=== PATIENT | female | born 1980 | race Caucasian/White ===

== ENCOUNTER 2024-07-30 22:30 | Inpatient (IN) | payer MEDICAID, OTHER ==
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
[2024-07-30 23:38] LABS: Basophils # (A) 0.05 10*3/uL (0.00-0.10); Basophils % (A) 0.4 %; Eosinophils % (A) 0.9 %; HCT 37.5 % (37.2-46.3); HGB 12.4 g/dL (12.0-15.0); Lymphocytes % (A) 14.7 %; MCH 29.2 pg (27.0-32.0); MCHC 33.1 g/dL (32.0-37.0); MCV 88.2 fL (80.0-97.0); Mean Platelet Volume 10.3 fL (9.5-12.2); Monocytes # (A) 0.27 10*3/uL (0.20-1.00); Monocytes % (A) 2.3 %; Neutrophils # (A) 9.36 10*3/uL (1.80-7.70); Neutrophils % (A) 81.3 %; Platelet Count 381 10*3/uL (140-440); RBC 4.25 10*6/uL (4.10-5.20); RDW 14.9 % (11.5-14.5); WBC 11.53 10*3/uL (4.50-10.00)
[2024-07-31 00:08] LABS: African American GFR (CKD) 73 (>60 ml/min/1.73 sqM); Anion Gap 12 mmol/L; Blood Urea Nitrogen 12 mg/dL (7-17); C Reactive Protein 3.4 mg/dL (<1.0); Calcium 9.9 mg/dL (8.4-10.2); Carbon Dioxide 17 mmol/L (22-30); Chloride 112 mmol/L (98-107); Creatine Kinase 30 U/L (30-135); Glucose 127 mg/dL (74-99); Non-African American GFR(CKD) 63 (>60 ml/min/1.73 sqM); Potassium 4.1 mmol/L (3.5-5.1); Sodium 141 mmol/L (137-145)
[2024-07-31] MEDS: MORPHINE SULFATE 4 MG/ML SYRINGE IV STA (00:12)
[2024-07-31] MEDS: methylPREDNISolone SOD SUCCI 125 MG/2 ML VIAL IV STA (00:25)
[2024-07-31] MEDS ORDERED: MORPHINE SULFATE 4 MG/ML SYRINGE IV PRN (00:43)
[2024-07-31] MEDS ORDERED: NALOXONE 0.4 MG/ML 1 ML VIAL IV PRN (00:43)
[2024-07-31] MEDS: ONDANSETRON 4 MG/2 ML VIAL IVP PRN (01:38)
--- NOTE | 2024-07-31 01:40 | CT ---
EXAM: CT Lumbar Spine Without Intravenous Contrast CLINICAL HISTORY: ITS.REASON CT Reason: L Leg pain/weakness. Urinary incont. TECHNIQUE: Axial computed tomography images of the lumbar spine without intravenous contrast. CTDI is 30.7 mGy and DLP is 1157 mGy-cm. This CT exam was performed using one or more of the following dose reduction techniques: automated exposure control, adjustment of the mA and/or kV according to patient size, and/or use of iterative reconstruction technique. COMPARISON: No relevant prior studies available. FINDINGS: Vertebrae: Mild facet arthropathy. Straightening of the lumbar spine. No acute fracture. Discs/spinal canal/neural foramina: Disc bulges L3-4 and L4-5. Some effacement of the ventral subarachnoid space L4-5. Narrowing of the lateral recesses, greater on the left at L4-5. Soft tissues: Unremarkable. IMPRESSION: 1. No fracture or malalignment. 2. Degenerative disc disease. Narrowing of the lateral recesses at L4-5 greater on the left.
[2024-07-31] MEDS: SODIUM CHLORIDE 0.9% 1,000 ML IV SCH (01:56)
[2024-07-31] MEDS: fentaNYL (PF) 50 MCG/ML 2 ML AMP IVP STA (02:01)
[2024-07-31] MEDS: KETOROLAC 15 MG/ML 1 ML VIAL IVP PRN (03:23)
[2024-07-31] MEDS: diazePAM 5 MG TAB PO PRN (04:10)
[2024-07-31] MEDS: ACETAMINOPHEN IV (For NPO) 1,000 MG in EMPTY BAG 1 BAG IVPB SCH (04:10)
[2024-07-31] MEDS ORDERED: ACETAMINOPHEN IV (For NPO) 1,000 MG in EMPTY BAG 1 BAG IVPB SCH (06:00)
[2024-07-31] MEDS: PREGABALIN 100 MG CAP PO SCH (06:00)
[2024-07-31] MEDS ORDERED: DEXTROSE 50% SYRINGE 50 ML IVP PRN ×2 (09:04)
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
[2024-07-31] MEDS: FAMOTIDINE 20 MG TAB PO SCH (09:13)
[2024-07-31] MEDS: LORazepam 1 MG/0.5 ML VIAL IV PRN (09:30)
[2024-07-31] MEDS: CHOLECALCIFEROL 125 MCG (5000 IU) TABLET PO SCH (10:51)
--- NOTE | 2024-07-31 10:51 | MR ---
EXAMINATION TYPE: MR lumbar spine wo/w con DATE OF EXAM: 07/31/2024 10:44 AM COMPARISON: None. CLINICAL INDICATION: Female, 44 years old with history of back pain, urinary incontinence, Lower back pain, urinary incontinence, left drop foot. TECHNIQUE: Multiplanar, MultiSpin echo imaging of the lumbar spine was performed. CONTRAST: The patient was injected with 10 mL intravenous Gadobutrol gadolinium contrast. FINDINGS: L1-L2: Normal disc appearance without desiccation. No herniation, protrusion or disc bulging. No ca nal stenosis is present. Foramina are patent bilaterally. L2-L3: Normal disc appearance without desiccation. No herniation, protrusion or disc bulging. No ca nal stenosis is present. Foramina are patent bilaterally. L3-L4: There is mild disc desiccation noted with posterior disc bulge and annular tear. Mild effaceme nt of the ventral thecal sac. No evidence for faye herniation or central stenosis. Lateral recesses patent bilaterally as is the neural foramen. L4-L5: Moderate disc desiccation with posterior disc bulge and effacement of the ventral thecal sac. Mild left lateral recess stenosis. Foramina are patent bilaterally. No central stenosis. L5-S1: Normal disc appearance without desiccation. No herniation, protrusion or disc bulging. No ca nal stenosis is present. Foramina are patent bilaterally. Lumbar segments are intact. No paraspinal masses are identified. Conus medullaris has a normal appe arance. No enhancing lesions identified. IMPRESSION: 1. Degenerative disc disease as discussed with posterior disc bulge. Mild lateral recess stenosis at L4-5. [facility], , 07/31/2024 10:49 AM
[2024-07-31] MEDS: METOPROLOL TARTRATE 25 MG TAB PO SCH (10:52)
[2024-07-31] MEDS: NICOTINE 21MG/24HR PATCH TRANSDERM SCH (10:52)
[2024-07-31] MEDS: ERGOCALCIFEROL 1,250 MCG (50,000 IU) CAPSULE PO SCH (10:52)
[2024-07-31] MEDS: PANTOPRAZOLE 40 MG TABLET PO SCH (10:52)
[2024-07-31] MEDS: TOPIRAMATE 25 MG TAB PO SCH (10:53)
[2024-07-31 11:11] LABS: Glucose,Whole Blood 286 mg/dL (70-110)
[2024-07-31] MEDS: INSULIN LISPRO (HumaLOG) 100 UNIT/ML 10 mL VL SQ SCH (11:56)
--- NOTE | 2024-07-31 12:23 | P.PN ---
Progress Note - Text Progress Note Date: 07/31/24 Patient is a pleasant 44-year-old female who is seen examined at the bedside for follow-up evaluation with her family present. Patient has undergone lumbar MRI imaging. Imaging has been reviewed by myself and Dr. Adam Oswald. Reviewing of imaging does not show any significant herniated nucleus pulposus, canal stenosis, or foraminal stenosis. There are not any significant findings that correlate well with the patient's symptoms. We do not see evidence of cauda equina on lumbar MRI imaging. She has had 2 episodes of loss of bladder. Will currently plan to consult Dr. Shipman in urology. She also has some numbness in her lower extremities, which has been chronic, but significant left lower extremity pain and weakness. She also has loss of bladder. We will consult with Dr. Black and neurology. At this time, we are not planning for any surgical intervention in regards to her lumbosacral spine as we do not feel there are indications in which surgical intervention would provide any significant improvement of her symptoms. We recommend further evaluation with other medical providers. The patient is seen and examined. I reviewed the imaging as well. I agree with the above that the patient does not have any Significant mechanical stenosis to account for her symptoms. She does have some degenerative changes at her lumbar spine with some diffuse disc bulging but no evidence of any cauda equina or significant central stenosis. I do not think her symptoms stem from her lumbar spine. I would not recommend any spinal intervention at this point. She has a number of different symptoms and I think that she could benefit with evaluation and continued management from medicine as well as the possibility of neurology and urology to address her issues. From a spine standpoint she can follow-up on a as needed basis.
[2024-07-31] MEDS ORDERED: diphenhydrAMINE 25 MG CAP PO PRN (12:51)
[2024-07-31] MEDS: HYDROcodone/APAP 5-325MG 1 EACH TAB PO PRN ×2 (12:59→15:15)
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
[2024-07-31 15:01] LABS: Appearance,Urine Clear (Clear); Bacteria,Urine Rare /hpf; Bilirubin,Urine Negative (Negative); Blood,Urine Small (Negative); Color,Urine Yellow; Glucose,Urine (UA) 1+ (Negative); Ketones,Urine Negative (Negative); Leukocyte Esterase,Urine Small (Negative); Mucus,Urine Rare /hpf; Nitrite,Urine Negative (Negative); PH, Urine 5.5 (5.0-8.0); Protein,Urine Negative (Negative); RBC,Urine 1 /hpf (0-5); Specific Gravity,Urine 1.035 (1.001-1.035); Squamous Epithelial Cell,Urine 3 /hpf (0-4); Urobilinogen,Urine <2.0 mg/dL (<2.0); WBC,Urine 2 /hpf (0-5)
[2024-07-31 16:15] LABS: Glucose,Whole Blood 261 mg/dL (70-110)
[2024-07-31 20:44] LABS: Glucose,Whole Blood 206 mg/dL (70-110)
[2024-07-31] MEDS: INSULIN GLARGINE (LANTUS) 100 UNIT/ML SYR SQ SCH (20:56)
[2024-08-01] MEDS: TEMAZEPAM 15 MG CAP PO PRN (00:15)
[2024-08-01 03:23] LABS: Vitamin B12 >3600.0 pg/mL (200.0-944.0)
[2024-08-01 06:14] LABS: Glucose,Whole Blood 182 mg/dL (70-110)
[2024-08-01] MEDS: ONDANSETRON 4 MG/2 ML VIAL IVP PRN (06:17)
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
[2024-08-01] MEDS: LOSARTAN 50 MG TAB PO SCH (09:14)
[2024-08-01] MEDS: FOLIC ACID 1 MG TAB PO SCH (09:14)
[2024-08-01 10:17] LABS: Basophils # (A) 0.04 X 10*3/uL (0.00-0.10); Basophils % (A) 0.2 %; Eosinophils # (A) 0.01 X 10*3/uL (0.04-0.35); Eosinophils % (A) 0.1 %; HCT 37.9 % (37.2-46.3); HGB 11.6 g/dL (12.0-15.0); Lymphocytes # (A) 2.99 X 10*3/uL (0.90-5.00); MCH 28.4 pg (27.0-32.0); MCHC 30.6 g/dL (32.0-37.0); MCV 92.9 FL (80.0-97.0); Mean Platelet Volume 11.2 FL (9.5-12.2); Monocytes # (A) 0.86 X 10*3/uL (0.20-1.00); Monocytes % (A) 5.2 %; NRBC Per 100 WBC 0 X 10*3/uL (0.00-0.01); Neutrophils # (A) 12.49 X 10*3/uL (1.80-7.70); Platelet Count 396 X 10*3/uL (140-440); RBC 4.08 X 10*6/uL (4.10-5.20); RDW 15.4 % (11.5-14.5); WBC 16.64 X 10*3/uL (4.50-10.00)
[2024-08-01 10:22] LABS: ALT 36 U/L (8-44); AST 17 U/L (13-35); Albumin 4.1 g/dL (3.8-4.9); Albumin/Globulin Ratio 2.16 Ratio (1.60-3.17); Alkaline Phosphatase 91 U/L (41-126); BUN/Creat Ratio 12.18 Ratio (12.00-20.00); Blood Urea Nitrogen 13.4 mg/dL (9.0-27.0); Calcium 9.4 mg/dL (8.7-10.3); Carbon Dioxide 17.6 mmol/L (21.6-31.8); Chloride 114 mmol/L (96-109); Globulin 1.9 g/dL (1.6-3.3); Glucose 185 mg/dL (70-110); Magnesium 2.5 mg/dL (1.5-2.4); Sodium 142 mmol/L (135-145); Total Bilirubin <0.2 mg/dL (0.3-1.2)
[2024-08-01 11:10] LABS: Glucose,Whole Blood 166 mg/dL (70-110)
--- NOTE | 2024-08-01 16:28 | P.PN ---
Subjective Progress Note Date: 08/01/24 This is a pleasant 44-year-old female from [place] who presented to the emergency department with loss of bladder and lower extremity weakness more so on the left with difficulty in ambulating. Patient follows with Dr. Groves in [place] as her primary care provider and also sees Dr. Cope neurology in the outpatient setting for radiculopathy and has been undergoing multiple tests including MRI and EMG studies with another EMG of the upper extremities do this upcoming Saturday. Patient is also reporting significant amount of pain and a consult to pain management has been requested per orthopedics. Patient did undergo lumbar CT in the ER that displayed no fracture or malalignment with degenerative disc disease and a narrowing of the lateral recesses at L4-5 bilaterally, greater on the left. Lumbar MRI was ordered and patient did have it this morning which reveals degenerative disc disease with a posterior disc bulge and mild lateral recess stenosis at L4-5 patient was evaluated by orthope dics today with no plans of surgical intervention and MRI is not a suggestive of any cauda equina and has been instructed to follow-up outpatient as needed. Orthopedics did consult pain management along with urology and neurology. Labs reviewed with a mildly elevated white count of 11.53, hemoglobin stable at 12.4, platelets 381, sodium 141 with a potassium of 4.1, creatinine is 1.09 with a BUN of 12, CK is 30 and CRP is 3.4. Patient was admitted under observation for orthopedic evaluation. 08/01/2024 Patient is evaluated in follow-up in the medical floor. She continues to report significant weakness in the left leg as well as a feeling of heaviness. She is having pain from her lower back all the way down to her ankle and foot on the left as well as her knee on the right. She is not reporting any saddle paresthesias at this time but states that it does come and go. Patient had mu ltiple imaging done and was also evaluated orthopedic surgery. Neurology is currently recommending lumbar puncture at this time. Blood cell count is elevated at 16.64. Vitamin B-12 was elevated folate level is low at 3.20 blood sugars better controlled. IgG and IgM ANAs are all unremarkable. REVIEW OF SYSTEMS: CONSTITUTIONAL: No fever, no malaise, no fatigue. HEENT: No recent visual problems or hearing problems. Denied any sore throat. CARDIOVASCULAR: No chest pain, orthopnea, PND, no palpitations, no syncope. PULMONARY: No shortness of breath, no cough, no hemoptysis. GASTROINTESTINAL: No diarrhea, no nausea, no vomiting, no abdominal pain. NEUROLOGICAL: Reports of headaches, reports of generalized weakness more so of the left lower extremity, reports of intermittent numbness of the left lower extremity. PHYSICAL EXAMINATION: GENERAL: The patient is alert and oriented x3, mildly anxious. Well developed, obese HEENT: Pupils are round and equally reacting to light. EOMI. No scleral icterus. No conjunctival pallor. Normocephalic, atraumatic. No pharyngeal erythema. No th yromegaly. CARDIOVASCULAR: S1 and S2 present. No murmurs, rubs, or gallops. PULMONARY: Chest is clear to auscultation, no wheezing or crackles. ABDOMEN: Soft, obese, nontender, nondistended, normoactive bowel sounds. No palpable organomegaly. MUSCULOSKELETAL: No joint swelling or deformity. EXTREMITIES: No cyanosis, clubbing, or pedal edema. Positive pulses noted bilaterally of lower extremities, strength 3/5 on the left lower extremity NEUROLOGICAL: Gross neurological examination did not reveal any focal deficits. Diffusely weak SKIN: No rashes. Assessment: Intractable back pain with lower extremity weakness, worse on the left, likely secondary to radiculopathy Leukocytosis, likely reactive Urinary incontinence History of diabetes mellitus, type II, uncontrolled with hyperglycemia Hypertension history History of pernicious anemia History of ovarian cancer previously History of anxiety Continued ongoing nicotine abuse Obesity with a BMI 36.4 GI prophylaxis DVT prophylaxis Full code Plan: Patient was admitted with intractable back pain and lower extremity weakness more so on the left with urinary incontinence x 2 underwent imaging including MRI as mentioned above with no acute findings noted other than degenerative disc disease on orthopedics recommending conservative management and may follow-up as needed Neurology and urology has been consulted with concerns of incontinence episodes x 2 and further neurological workup. Patient does follow with Dr. Cope in the outpatient setting and is undergoing further neurological workup including multiple EMGs, MRI and upper EMGs that are scheduled to be on Saturday. Patient does have significant diabetes although is insulin-dependent and will be managed in the outpatient setting by her primary care provider. Patient does not want to go to endocrine she was referred to. Hemoglobin A1c per patient is 5.2. Patient has been instructed to keep her appointments with her neurologist and will discuss with neurology regarding discharge planning today. Patient will need a walker on discharge in order to perform her ADLs secondary to significant radiculopathy with lower extremity weakness and paresthesias. Neurology will perform a lumbar puncture today with further recommendations pending. The impression and plan of care has been dictated by Raisa Cline Nurse Practitioner as directed. Dr. Kendrick MD I have performed a history and examination and MDM of this patient, discussed the same with the dictator, and agree with the dictator's assessment and plan as written ,documented as a scribe. Based on total visit time, I have performed more than 50% of the visit. Objective - Vital Signs Vital signs: Vital Signs Temp 97.6 F 08/01/24 14:00 Pulse 98 08/01/24 14:00 Resp 18 08/01/24 14:00 BP 97/60 08/01/24 14:00 Pulse Ox 99 08/01/24 14:00 FiO2 Intake & Output 07/31/24 08/01/24 08/01/24 18:59 06:59 18:59 Other: Voiding Method Bedside Commode Bedside Commode Bedside Commode Diaper Diaper # Voids 3 1 - Labs CBC & Chem 7: 08/01/24 05:55 08/01/24 05:55 Labs: Abnormal Lab Results - Last 24 Hours (Table) 07/31/24 07/31/24 07/31/24 Range/Units 20:42 20:50 20:50 WBC (4.50-10.00) X 10*3/uL RBC (4.10-5.20) X 10*6/uL Hgb (12.0-15.0) g/dL MCHC (32.0-37.0) g/dL RDW (11.5-14.5) % Immature Gran # (0.00-0.04) X 10*3/uL Neutrophils # (1.80-7.70) X 10*3/uL Eosinophils # (0.04-0.35) X 10*3/uL Chloride (96-109) mmol/L Carbon Dioxide (21.6-31.8) mmol/L Glucose (70-110) mg/dL POC Glucose (mg/dL) 206 H (70-110) mg/dL Magnesium (1.5-2.4) mg/dL Total Bilirubin (0.3-1.2) mg/dL Total Protein (6.2-8.2) g/dL Vitamin B12 >3600.0 H (200.0-944.0) pg/mL Folate 3.20 L (4.40-31.00) ng/mL 08/01/24 08/01/24 08/01/24 Range/Units 05:55 05:55 06:13 WBC 16.64 H (4.50-10.00) X 10*3/uL RBC 4.08 L (4.10-5.20) X 10*6/uL Hgb 11.6 L (12.0-15.0) g/dL MCHC 30.6 L (32.0-37.0) g/dL RDW 15.4 H (11.5-14.5) % Immature Gran # 0.25 H (0.00-0.04) X 10*3/uL Neutrophils # 12.49 H (1.80-7.70) X 10*3/uL Eosinophils # 0.01 L (0.04-0.35) X 10*3/uL Chloride 114 H (96-109) mmol/L Carbon Dioxide 17.6 L (21.6-31.8) mmol/L Glucose 185 H (70-110) mg/dL POC Glucose (mg/dL) 182 H (70-110) mg/dL Magnesium 2.5 H (1.5-2.4) mg/dL Total Bilirubin <0.2 L (0.3-1.2) mg/dL Total Protein 6.0 L (6.2-8.2) g/dL Vitamin B12 (200.0-944.0) pg/mL Folate (4.40-31.00) ng/mL 08/01/24 Range/Units 11:05 WBC (4.50-10.00) X 10*3/uL RBC (4.10-5.20) X 10*6/uL Hgb (12.0-15.0) g/dL MCHC (32.0-37.0) g/dL RDW (11.5-14.5) % Immature Gran # (0.00-0.04) X 10*3/uL Neutrophils # (1.80-7.70) X 10*3/uL Eosinophils # (0.04-0.35) X 10*3/uL Chloride (96-109) mmol/L Carbon Dioxide (21.6-31.8) mmol/L Glucose (70-110) mg/dL POC Glucose (mg/dL) 166 H (70-110) mg/dL Magnesium (1.5-2.4) mg/dL Total Bilirubin (0.3-1.2) mg/dL Total Protein (6.2-8.2) g/dL Vitamin B12 (200.0-944.0) pg/mL Folate (4.40-31.00) ng/mL Assessment and Plan Time with Patient: Less than 30
[2024-08-01 16:42] LABS: Glucose,Whole Blood 190 mg/dL (70-110)
[2024-08-01] MEDS: methylPREDNISolone SOD SUCCIN 250 MG in SODIUM CHLORIDE 0.9% 100 ML IVPB SCH (21:10)
[2024-08-02 05:02] LABS: Basophils # (A) 0.05 10*3/uL (0.00-0.10); Basophils % (A) 0.5 %; Eosinophils # (A) 0.02 10*3/uL (0.04-0.35); Eosinophils % (A) 0.2 %; HCT 38.4 % (37.2-46.3); HGB 11.8 g/dL (12.0-15.0); Lymphocytes # (A) 1.19 10*3/uL (0.90-5.00); Lymphocytes % (A) 11.2 %; MCH 29.4 pg (27.0-32.0); MCHC 30.7 g/dL (32.0-37.0); Monocytes # (A) 0.18 10*3/uL (0.20-1.00); Monocytes % (A) 1.7 %; Neutrophils # (A) 9.09 10*3/uL (1.80-7.70); Neutrophils % (A) 85.2 %; Platelet Count 330 10*3/uL (140-440); RBC 4.02 10*6/uL (4.10-5.20); RDW 15.8 % (11.5-14.5); WBC 10.66 10*3/uL (4.50-10.00)
[2024-08-02 05:03] LABS: MCV 95.5 fL (80.0-97.0)
[2024-08-02 06:13] LABS: Glucose,Whole Blood 262 mg/dL (70-110)
[2024-08-02 11:03] LABS: BUN/Creat Ratio 12.82 Ratio (12.00-20.00); Blood Urea Nitrogen 14.1 mg/dL (9.0-27.0); Calcium 9.3 mg/dL (8.7-10.3); Carbon Dioxide 14.7 mmol/L (21.6-31.8); Chloride 112 mmol/L (96-109); Glucose 262 mg/dL (70-110); Potassium 5.5 mmol/L (3.5-5.5); Sodium 139 mmol/L (135-145)
[2024-08-02 11:09] LABS: Glucose,Whole Blood 278 mg/dL (70-110)
--- NOTE | 2024-08-02 11:12 | P.PN ---
Subjective Progress Note Date: 08/01/24 Patient was seen for follow-up. Patient denies any changes in her condition. Objective - Vital Signs Vital signs: Vital Signs Temp 97.6 F 08/01/24 14:00 Pulse 98 08/01/24 14:00 Resp 18 08/01/24 14:00 BP 97/60 08/01/24 14:00 Pulse Ox 99 08/01/24 14:00 FiO2 Intake & Output 07/31/24 08/01/24 08/01/24 18:59 06:59 18:59 Other: Voiding Method Bedside Commode Bedside Commode Bedside Commode Diaper Diaper # Voids 3 1 - Exam On examination patient's mental status, speech and language functions, cranial nerves are normal. Muscle strength is completely normal in both arms distally and proximally. In the lower limbs, her right lower limb is completely normal distally and proximally. In the left lower limb, her hip flexion is about 3 3-. Her left ankle, toes are extremely tender to any movement and it hurts in the hamstring region. I was not able to assess the muscle strength at all because of the pain she is in. However later I saw patient sitting on the bed in " style" and appeared very comfortable. Deep tendon reflexes are very symmetric, 2 at the biceps, 2 brachioradialis, 1+2 at knees, 1+2 at ankles. - Labs CBC & Chem 7: 08/02/24 02:40 08/02/24 02:40 Labs: Abnormal Lab Results - Last 24 Hours (Table) 07/31/24 07/31/24 07/31/24 Range/Units 20:42 20:50 20:50 WBC (4.50-10.00) X 10*3/uL RBC (4.10-5.20) X 10*6/uL Hgb (12.0-15.0) g/dL MCHC (32.0-37.0) g/dL RDW (11.5-14.5) % Immature Gran # (0.00-0.04) X 10*3/uL Neutrophils # (1.80-7.70) X 10*3/uL Eosinophils # (0.04-0.35) X 10*3/uL Chloride (96-109) mmol/L Carbon Dioxide (21.6-31.8) mmol/L Glucose (70-110) mg/dL POC Glucose (mg/dL) 206 H (70-110) mg/dL Magnesium (1.5-2.4) mg/dL Total Bilirubin (0.3-1.2) mg/dL Total Protein (6.2-8.2) g/dL Vitamin B12 >3600.0 H (200.0-944.0) pg/mL Folate 3.20 L (4.40-31.00) ng/mL 08/01/24 08/01/24 08/01/24 Range/Units 05:55 05:55 06:13 WBC 16.64 H (4.50-10.00) X 10*3/uL RBC 4.08 L (4.10-5.20) X 10*6/uL Hgb 11.6 L (12.0-15.0) g/dL MCHC 30.6 L (32.0-37.0) g/dL RDW 15.4 H (11.5-14.5) % Immature Gran # 0.25 H (0.00-0.04) X 10*3/uL Neutrophils # 12.49 H (1.80-7.70) X 10*3/uL Eosinophils # 0.01 L (0.04-0.35) X 10*3/uL Chloride 114 H (96-109) mmol/L Carbon Dioxide 17.6 L (21.6-31.8) mmol/L Glucose 185 H (70-110) mg/dL POC Glucose (mg/dL) 182 H (70-110) mg/dL Magnesium 2.5 H (1.5-2.4) mg/dL Total Bilirubin <0.2 L (0.3-1.2) mg/dL Total Protein 6.0 L (6.2-8.2) g/dL Vitamin B12 (200.0-944.0) pg/mL Folate (4.40-31.00) ng/mL 08/01/24 08/01/24 Range/Units 11:05 16:37 WBC (4.50-10.00) X 10*3/uL RBC (4.10-5.20) X 10*6/uL Hgb (12.0-15.0) g/dL MCHC (32.0-37.0) g/dL RDW (11.5-14.5) % Immature Gran # (0.00-0.04) X 10*3/uL Neutrophils # (1.80-7.70) X 10*3/uL Eosinophils # (0.04-0.35) X 10*3/uL Chloride (96-109) mmol/L Carbon Dioxide (21.6-31.8) mmol/L Glucose (70-110) mg/dL POC Glucose (mg/dL) 166 H 190 H (70-110) mg/dL Magnesium (1.5-2.4) mg/dL Total Bilirubin (0.3-1.2) mg/dL Total Protein (6.2-8.2) g/dL Vitamin B12 (200.0-944.0) pg/mL Folate (4.40-31.00) ng/mL Assessment and Plan Assessment: * 44-year-old female with chronic back issues, diabetes has presented with left leg weakness with radiculopathy. However MRI of the lumbar spine did not reveal any significant disc herniation. Rule out lumbosacral plexopathy. Patient also * Urinary incontinence, new onset for last 2 weeks * History of left arm and left facial numbness for last 2 years, unclear cause. Rule out MS. * Diabetes * Morbid obesity * Tobacco use * History of B12 deficiency Plan: * MRI of the lumbar spine with and without contrast revealed degenerative disc disease with posterior disc bulge. Mild lateral recess stenosis at L4-L5. I personally reviewed MRI, agree with the findings. No significant abnormalities. * Orthopedic surgery also has seen patient and they agree that MRI does not show any significant herniated nucleus pulposus, canal stenosis or foraminal stenosis. There are not any significant findings that correlate well with patient's symptoms. There is no evidence of cauda equina on lumbar MRI imaging. I agree with the findings, no mechanical compression. * Patient has been seen by pain management were concerned about possibility of multiple sclerosis, therefore this neurology consultation was initiated. Lumbar epidural steroid injection was recommended, but patient declined, as with her previous experience, it helped with the pain, but not with the numbness or weakness. Patient wants complete fix of her problem, "not a Band- Aid". * Regarding medications for neuropathic pain, patient states "has tried them all" and did not work. This includes Neurontin, Lyrica, Cymbalta. * Patient has history of B12 deficiency, and will continue B12 injections weekly. * We will check detailed blood tests to evaluate for various causes of neuropathy. * B12 > 3600, folate 3.20, hemoglobin A1c 5.9, IgG 872, IgM 115, MENDOZA, Sjogren's antibodies negative. CRP 0.60 normal. * Her left leg weakness is of unclear cause, rule out lumbosacral plexopathy. * Lumbar puncture to evaluate for high proteins. She may be a candidate for IV steroids versus IVIG. Patient's reflexes are normal and symmetric, does not appear to have CIDP. * Patient had an EMG and nerve conduction studies of lower extremities performed at her neurology office. We will try to obtain those results. She is scheduled for EMG of her upper extremities on 08/07/2024. Hopefully she will be discharged before then so she can follow-up with her neurologist. * Patient agreed to undergo lumbar puncture.
--- NOTE | 2024-08-02 11:20 | P.PCN ---
Date of Procedure: 08/01/24 Preoperative Diagnosis: Rule out lumbosacral plexopathy, rule out MS Postoperative Diagnosis: Rule out lumbosacral plexopathy, rule out MS Procedure(s) Performed: Lumbar puncture, unsuccessful Anesthesia: local Surgeon: Derek Black Estimated Blood Loss (ml): 1 Pathology: none sent Condition: stable Disposition: floor Indications for Procedure: Rule out MS, rule out plexopathy Description of Procedure: Informed consent was obtained from patient. Very detailed risks and benefits of the procedure, and the indication of procedure was explained to the patient in detail in the presence of nurse. Patient was informed of the risk of infection, bleeding, numbness, back pain, and the features of post spinal headache and the treatment. Patient was placed in the sitting position on the side of the bed. The procedure was performed under strict aseptic conditions. L4 lumbar space was identified and marked. Low back region was sterilized with ChloraPrep and then with Betadine, and anesthetized with 1% lidocaine. A spinal needle 20-gauge, 3.5 inch inserted at L4 lumbar space. After a couple attempts, but was getting resistance. I then anesthetized the L3 lumbar space, and again got some resistance. Tried back again at L4 lumbar space. I was able to enter the interspinous space, however the needle appears to be short and was not able to reach subarachnoid space despite the entire length inside. Stylette was reintroduced, spinal needle withdrawn. Band-Aid was applied. Patient tolerated the procedure very well. Patient will need lumbar puncture with a longer needle 5 inch. Anesthesia was consulted, and I spoke to Dr. Mistry, and he recommended patient to have this procedure outpatient. I spoke to patient to have it performed outpatient, but she declined. She wants to have testing done here in the hospital otherwise will not be able to have organized evaluation outpatient. Therefore anesthesia was reconsulted as well as interventional radiology, whoever can perform the test with a longer needle. Patient to be started on Solu-Medrol 2050 mg IVPB twice daily for possible lumbosacral plexopathy. We will try to obtain EMG records from Dr. Tello office.
--- NOTE | 2024-08-02 13:22 | P.PN ---
Subjective Progress Note Date: 08/02/24 This is a pleasant 44-year-old female from [place] who presented to the emergency department with loss of bladder and lower extremity weakness more so on the left with difficulty in ambulating. Patient follows with Dr. Groves in [place] as her primary care provider and also sees Dr. Cope neurology in the outpatient setting for radiculopathy and has been undergoing multiple tests including MRI and EMG studies with another EMG of the upper extremities do this upcoming Saturday. Patient is also reporting significant amount of pain and a consult to pain management has been requested per orthopedics. Patient did undergo lumbar CT in the ER that displayed no fracture or malalignment with degenerative disc disease and a narrowing of the lateral recesses at L4-5 bilaterally, greater on the left. Lumbar MRI was ordered and patient did have it this morning which reveals degenerative disc disease with a posterior disc bulge and mild lateral recess stenosis at L4-5 patient was evaluated by orthope dics today with no plans of surgical intervention and MRI is not a suggestive of any cauda equina and has been instructed to follow-up outpatient as needed. Orthopedics did consult pain management along with urology and neurology. Labs reviewed with a mildly elevated white count of 11.53, hemoglobin stable at 12.4, platelets 381, sodium 141 with a potassium of 4.1, creatinine is 1.09 with a BUN of 12, CK is 30 and CRP is 3.4. Patient was admitted under observation for orthopedic evaluation. 08/01/2024 Patient is evaluated in follow-up in the medical floor. She continues to report significant weakness in the left leg as well as a feeling of heaviness. She is having pain from her lower back all the way down to her ankle and foot on the left as well as her knee on the right. She is not reporting any saddle paresthesias at this time but states that it does come and go. Patient had mu ltiple imaging done and was also evaluated orthopedic surgery. Neurology is currently recommending lumbar puncture at this time. Blood cell count is elevated at 16.64. Vitamin B-12 was elevated folate level is low at 3.20 blood sugars better controlled. IgG and IgM ANAs are all unremarkable. 08/02/2024 Patient is evaluated today in follow up. LP unable to be completed yesterday and IR and anesthesia are consulted for LP to be performed hopefully on Saturday. Patient has been started on high dose IV methylprednisolone for which patient states she has a 10% improvement in her symptoms. She is still having lower back pain with radicular symptoms; however she has been able to wiggle her toes today. REVIEW OF SYSTEMS: CONSTITUTIONAL: No fever, no malaise, no fatigue. HEENT: No recent visual problems or hearing problems. Denied any sore throat. CARDIOVASCULAR: No chest pain, orthopnea, PND, no palpitations, no syncope. PULMONARY: No shortness of breath, no cough, no hemoptysis. GASTROINTESTINAL: No diarrhea, no nausea, no vomiting, no abdominal pain. NEUROLOGICAL: Reports of headaches, reports of generalized weakness more so of the left lower extremity, reports of intermittent numbness of the left lower extremity. PHYSICAL EXAMINATION: GENERAL: The patient is alert and oriented x3, mildly anxious. Well developed, obese HEENT: Pupils are round and equally reacting to light. EOMI. No scleral icterus. No conjunctival pallor. Normocephalic, atraumatic. No pharyngeal erythema. No thyromegaly. CARDIOVASCULAR: S1 and S2 present. No murmurs, rubs, or gallops. PULMONARY: Chest is clear to auscultation, no wheezing or crackles. ABDOMEN: Soft, obese, nontender, nondistended, normoactive bowel sounds. No palpable organomegaly. MUSCULOSKELETAL: No joint swelling or deformity. EXTREMITIES: No cyanosis, clubbing, or pedal edema. Positive pulses noted bilaterally of lower extremities, strength 3/5 on the left lower extremity NEUROLOGICAL: Gross neurological examination did not reveal any focal deficits. Diffusely weak SKIN: No rashes. Assessment: Intractable back pain with lower extremity weakness, worse on the left, likely secondary to radiculopathy Leukocytosis, likely reactive Urinary incontinence History of diabetes mellitus, type II, uncontrolled with hyperglycemia Hypertension history History of pernicious anemia History of ovarian cancer previously History of anxiety Continued ongoing nicotine abuse Obesity with a BMI 36.4 GI prophylaxis DVT prophylaxis Full code Plan: Patient was admitted with intractable back pain and lower extremity weakness more so on the left with urinary incontinence x 2 underwent imaging including MRI as mentioned above with no acute findings noted other than degenerative disc disease on orthopedics recommending conservative management and may follow-up as needed Neurology and urology has been consulted with concerns of incontinence episodes x 2 and further neurological workup. Patient does follow with Dr. Cope in the outpatient setting and is undergoing further neurological workup including multiple EMGs, MRI and upper EMGs that are scheduled to be on Saturday. Patient does have significant diabetes although is insulin-dependent and will be managed in the outpatient setting by her primary care provider. Patient does not want to go to endocrine she was referred to. Hemoglobin A1c per patient is 5.2. Continue accuchecks ACHS and long acting insulin; adjust as needed Continue IV methylprednisolone per neurology Pending LP to be completed by either anesthesia or IR tomorrow Patient will need a walker on discharge in order to perform her ADLs secondary to significant radiculopathy with lower extremity weakness and paresthesias. Neurology will perform a lumbar puncture today with further recommendations pending. The impression and plan of care has been dictated by Raisa Cline, Nurse Practitioner as directed. Dr. Kendrick MD I have performed a history and examination and MDM of this patient, discussed the same with the dictator, and agree with the dictator's assessment and plan as written ,documented as a scribe. Based on total visit time, I have performed more than 50% of the visit. Objective - Vital Signs Vital signs: Vital Signs Temp 97.5 F L 08/02/24 07:30 Pulse 108 H 08/02/24 07:30 Resp 18 08/02/24 07:30 BP 130/96 08/02/24 07:30 Pulse Ox 100 08/02/24 07:30 FiO2 Intake & Output 08/01/24 08/02/24 08/02/24 18:59 06:59 18:59 Intake Total 1000 Balance 1000 Intake: Intake, IV Titration 500 Amount Sodium Chloride 0.9% 1, 400 000 ml @ 20 mls/hr IV . Q24H [facility] Rx#:[id number] methylPREDNISolone SOD 100 SUCCIN 250 mg In Sodium Chloride 0.9% 100 ml @ 200 mls/hr IVPB Q12HR SH[facility] Rx#:[id number] Oral 500 Other: Voiding Method Bedside Commode Bedside Commode Bedside Commode Diaper Diaper # Voids 3 - Labs CBC & Chem 7: 08/02/24 02:40 08/02/24 02:40 Labs: Abnormal Lab Results - Last 24 Hours (Table) 08/01/24 08/02/24 08/02/24 Range/Units 16:37 02:40 02:40 WBC 10.66 H (4.50-10.00) 10*3/uL RBC 4.02 L (4.10-5.20) 10*6/uL Hgb 11.8 L (12.0-15.0) g/dL MCHC 30.7 L (32.0-37.0) g/dL RDW 15.8 H (11.5-14.5) % Immature Gran # 0.13 H (0.00-0.04) 10*3/uL Neutrophils # 9.09 H (1.80-7.70) 10*3/uL Monocytes # 0.18 L (0.20-1.00) 10*3/uL Eosinophils # 0.02 L (0.04-0.35) 10*3/uL Chloride 112 H (96-109) mmol/L Carbon Dioxide 14.7 L (21.6-31.8) mmol/L Anion Gap 12.30 H (4.00-12.00) mmol/L Glucose 262 H (70-110) mg/dL POC Glucose (mg/dL) 190 H (70-110) mg/dL 08/02/24 08/02/24 Range/Units 06:12 11:08 WBC (4.50-10.00) 10*3/uL RBC (4.10-5.20) 10*6/uL Hgb (12.0-15.0) g/dL MCHC (32.0-37.0) g/dL RDW (11.5-14.5) % Immature Gran # (0.00-0.04) 10*3/uL Neutrophils # (1.80-7.70) 10*3/uL Monocytes # (0.20-1.00) 10*3/uL Eosinophils # (0.04-0.35) 10*3/uL Chloride (96-109) mmol/L Carbon Dioxide (21.6-31.8) mmol/L Anion Gap (4.00-12.00) mmol/L Glucose (70-110) mg/dL POC Glucose (mg/dL) 262 H 278 H (70-110) mg/dL Assessment and Plan Time with Patient: Less than 30
[2024-08-02 16:47] LABS: Glucose,Whole Blood 274 mg/dL (70-110)
[2024-08-02] MEDS: ACETAMINOPHEN TAB 325 MG TAB PO PRN (16:59)
[2024-08-02 19:58] LABS: Glucose,Whole Blood 340 mg/dL (70-110)
[2024-08-03 00:32] LABS: Glucose,Whole Blood 310 mg/dL (70-110)
[2024-08-03] MEDS: METOPROLOL TARTRATE 25 MG TAB PO STA (00:53)
--- NOTE | 2024-08-03 01:58 | P.PN ---
Subjective Progress Note Date: 08/02/24 Patient was seen for follow-up. Patient's was also present at the bedside. Patient is very pleased that she is about 10% better. Her left leg does not feel as heavy and she can move/wiggle her toes. Objective - Vital Signs Vital signs: Vital Signs Temp 98.3 F 08/03/24 01:07 Pulse 125 H 08/03/24 01:07 Resp 19 08/03/24 01:07 BP 147/91 08/03/24 01:07 Pulse Ox 99 08/03/24 01:07 FiO2 Intake & Output 08/02/24 08/02/24 08/03/24 06:59 18:59 06:59 Intake Total 1000 Balance 1000 Intake: Intake, IV Titration 500 Amount Sodium Chloride 0.9% 1, 400 000 ml @ 50 mls/hr IV . Q20H [facility] Rx#:[id number] methylPREDNISolone SOD 100 SUCCIN 250 mg In Sodium Chloride 0.9% 100 ml @ 200 mls/hr IVPB Q12HR [facility] Rx#:[id number] Oral 500 Other: Voiding Method Bedside Commode Bedside Commode Diaper # Voids 3 3 # Bowel Movements 0 - Exam 08/02/2024: Patient's mentation is normal. Patient able to wiggle her toes of the left foot and feels very pleased about it. 08/01/2024: On examination patient's mental status, speech and language functions, cranial nerves are normal. Muscle strength is completely normal in both arms distally and proximally. In the lower limbs, her right lower limb is completely normal distally and proximally. In the left lower limb, her hip flexion is about 3 3-. Her left ankle, toes are extremely tender to any movement and it hurts in the hamstring region. I was not able to assess the muscle strength at all because of the pain she is in. However later I saw patient sitting on the bed in "[place] Citizen style" and appeared very comfortable. Deep tendon reflexes are very symmetric, 2 at the biceps, 2 brachioradialis, 1+2 at knees, 1+2 at ankles. - Labs CBC & Chem 7: 08/02/24 02:40 08/02/24 02:40 Labs: Abnormal Lab Results - Last 24 Hours (Table) 08/02/24 08/02/24 08/02/24 Range/Units 02:40 02:40 06:12 WBC 10.66 H (4.50-10.00) 10*3/uL RBC 4.02 L (4.10-5.20) 10*6/uL Hgb 11.8 L (12.0-15.0) g/dL MCHC 30.7 L (32.0-37.0) g/dL RDW 15.8 H (11.5-14.5) % Immature Gran # 0.13 H (0.00-0.04) 10*3/uL Neutrophils # 9.09 H (1.80-7.70) 10*3/uL Monocytes # 0.18 L (0.20-1.00) 10*3/uL Eosinophils # 0.02 L (0.04-0.35) 10*3/uL Chloride 112 H (96-109) mmol/L Carbon Dioxide 14.7 L (21.6-31.8) mmol/L Anion Gap 12.30 H (4.00-12.00) mmol/L Glucose 262 H (70-110) mg/dL POC Glucose (mg/dL) 262 H (70-110) mg/dL 08/02/24 08/02/24 08/02/24 Range/Units 11:08 16:45 19:57 WBC (4.50-10.00) 10*3/uL RBC (4.10-5.20) 10*6/uL Hgb (12.0-15.0) g/dL MCHC (32.0-37.0) g/dL RDW (11.5-14.5) % Immature Gran # (0.00-0.04) 10*3/uL Neutrophils # (1.80-7.70) 10*3/uL Monocytes # (0.20-1.00) 10*3/uL Eosinophils # (0.04-0.35) 10*3/uL Chloride (96-109) mmol/L Carbon Dioxide (21.6-31.8) mmol/L Anion Gap (4.00-12.00) mmol/L Glucose (70-110) mg/dL POC Glucose (mg/dL) 278 H 274 H 340 H (70-110) mg/dL 08/03/24 Range/Units 00:31 WBC (4.50-10.00) 10*3/uL RBC (4.10-5.20) 10*6/uL Hgb (12.0-15.0) g/dL MCHC (32.0-37.0) g/dL RDW (11.5-14.5) % Immature Gran # (0.00-0.04) 10*3/uL Neutrophils # (1.80-7.70) 10*3/uL Monocytes # (0.20-1.00) 10*3/uL Eosinophils # (0.04-0.35) 10*3/uL Chloride (96-109) mmol/L Carbon Dioxide (21.6-31.8) mmol/L Anion Gap (4.00-12.00) mmol/L Glucose (70-110) mg/dL POC Glucose (mg/dL) 310 H (70-110) mg/dL Assessment and Plan Assessment: * 44-year-old female with chronic back issues, diabetes has presented with left leg weakness with radiculopathy. However MRI of the lumbar spine did not reveal any significant disc herniation. Rule out lumbosacral plexopathy. * Urinary incontinence, new onset for last 2 weeks * History of left arm and left facial numbness for last 2 years, unclear cause, rule out MS * Diabetes * Morbid obesity * Tobacco use * History of B12 deficiency Plan: * MRI of the lumbar spine with and without contrast revealed degenerative disc disease with posterior disc bulge. Mild lateral recess stenosis at L4-L5. I personally reviewed MRI, agree with the findings. No significant abnormalities. * Orthopedic surgery also has seen patient and they agree that MRI does not show any significant herniated nucleus pulposus, canal stenosis or foraminal stenosis. There are not any significant findings that correlate well with patient's symptoms. There is no evidence of cauda equina on lumbar MRI imaging. I agree with the findings, no mechanical compression. * Patient has been seen by pain management were concerned about possibility of multiple sclerosis, therefore this neurology consultation was initiated. Lumbar epidural steroid injection was recommended, but patient declined, as with her previous experience, it helped with the pain, but not with the numbness or weakness. Patient wants complete fix of her problem, "not a Band- Aid". * Check MRI of the brain and cervical spine. * Regarding medications for neuropathic pain, patient states "has tried them all" and did not work. This includes Neurontin, Lyrica, Cymbalta. Pain management have started patient on Lyrica 100 mg twice a day and she is doing better. * Patient has history of B12 deficiency, and will continue B12 injections weekly. * B12 > 3600, folate 3.20, hemoglobin A1c 5.9, IgG 872, IgM 115, MENDOZA, Sjogren's antibodies negative. CRP 0.60 normal. Patient started on folate replacement. * Her left leg weakness is of unclear cause, rule out lumbosacral plexopathy. Patient has been started on Solu-Medrol 250 mg twice a day. She states that she is "10% better" * Lumbar puncture was unsuccessful. Anesthesiology/interventional radiology has been consulted to perform lumbar puncture with 5 inch needle. * Patient had an EMG and nerve conduction studies of lower extremities performed at her neurology office. We will try to obtain those results. She is scheduled for EMG of her upper extremities on 08/07/2024. Hopefully she will be discharged before then so she can follow-up with her neurologist. * Dr. Dandy Hernandez to resume neurology service in the morning.
[2024-08-03 05:57] LABS: Glucose,Whole Blood 262 mg/dL (70-110)
[2024-08-03] MEDS: SODIUM CHLORIDE 0.9% 500 ML 500 ML IV ONE (06:51)
[2024-08-03 10:17] LABS: Basophils # (A) 0.03 X 10*3/uL (0.00-0.10); Basophils % (A) 0.2 %; Eosinophils # (A) 0 X 10*3/uL (0.04-0.35); Eosinophils % (A) 0 %; HCT 37.2 % (37.2-46.3); HGB 11.7 g/dL (12.0-15.0); Lymphocytes # (A) 1.74 X 10*3/uL (0.90-5.00); Lymphocytes % (A) 10.7 %; MCHC 31.5 g/dL (32.0-37.0); MCV 92.1 FL (80.0-97.0); Monocytes # (A) 0.41 X 10*3/uL (0.20-1.00); Monocytes % (A) 2.5 %; NRBC Per 100 WBC 0 X 10*3/uL (0.00-0.01); Neutrophils # (A) 13.72 X 10*3/uL (1.80-7.70); Neutrophils % (A) 84.1 %; Platelet Count 411 X 10*3/uL (140-440); RBC 4.04 X 10*6/uL (4.10-5.20)
[2024-08-03 11:04] LABS: Blood Urea Nitrogen 14.2 mg/dL (9.0-27.0); Calcium 9.4 mg/dL (8.7-10.3); Carbon Dioxide 16.2 mmol/L (21.6-31.8); Chloride 110 mmol/L (96-109); Glucose 267 mg/dL (70-110); Potassium 4.5 mmol/L (3.5-5.5); Sodium 139 mmol/L (135-145)
[2024-08-03 11:26] LABS: INR 0.9 (<1.2)
[2024-08-03 11:43] LABS: Glucose,Whole Blood 283 mg/dL (70-110)
[2024-08-03] MEDS: INSULIN LISPRO (HumaLOG) 100 UNIT/ML 10 mL VL SQ SCH (12:20)
[2024-08-03] MEDS: IV FLUID CONTINUATION 1,000 ML IV ONE ×2 (13:21→13:48)
[2024-08-03] MEDS: fentaNYL (PF) 50 MCG/ML 2 ML AMP IVP ONE (13:40)
--- NOTE | 2024-08-03 13:58 | P.PCN ---
Date of Procedure: 08/03/24 Procedure(s) Performed: Preoperative diagnosis: Multiple sclerosis Post operative diagnoses: Multiple sclerosis Procedure= lumbar puncture Anesthesia= lidocaine 1% 3 mL. Condition: stable Complication: none. Description of the procedure procedure risk and benefits discussed with the patient and family, consent signed. Patient and the procedure area placed in sitting position, back prepped with chlorhexidine 3 times been local infiltration of the skin and subcutaneous tissue with lidocaine 1% 3 mL for skin and subcu interstitial frustrations at L4 5 levels then 22-gauge 5 inches long Quincke-type needle advanced slowly at L4- 5 interlaminar space there was positive cerebrospinal fluid which was clear, no heme, no paresthesia ,total of 9 ML of clear cerebrospinal fluid collected in 4 different tubes 2-2-1/2 mL in each, then the needle removed and a Band-Aid applied and patient tolerated the procedure well without any complications.
--- NOTE | 2024-08-03 14:40 | P.PN ---
Progress Note - Text Progress Note Date: 08/03/24 Patient was under the care of by Dr. Black. I went to see the patient but I was notified that she went for lumbar puncture. Will try to come back again later.
[2024-08-03] MEDS: BUTALB/APAP/CAFF 50-325-40MG TAB PO PRN (14:51)
[2024-08-03 15:02] LABS: Appearance,CSF Clear
[2024-08-03 15:04] LABS: CSF Tube Number 4
[2024-08-03 15:13] LABS: Nucleated Cells, CSF 1 u/L (0-5); Red Blood Cell,CSF 0 u/L (0-10)
[2024-08-03 15:19] LABS: Glucose,CSF 155 mg/dL (40-70); Total Protein,CSF 44 mg/dL (12-60)
[2024-08-03] MEDS: DULoxetine HCL 30 MG CAPSULE.DR PO SCH (15:24)
[2024-08-03] MEDS: MAG HYDROX/AL HYDROX/SIMETH 30 ML, LIDOCAINE VISCOUS 2% 30 ML, diphenhydrAMINE ELIXIR 7... PO SCH (16:34)
[2024-08-03 16:35] LABS: Glucose,Whole Blood 289 mg/dL (70-110)
--- NOTE | 2024-08-03 17:58 | P.PN ---
Subjective Progress Note Date: 08/03/24 I am seeing the patient for the first time during this hospital visit. Please refer to Dr. Black's note for further details. Patient has chronic back issues and is diabetic but presents with left leg weakness urinary incontinence and numbness over the last 2 weeks. She also has left sided numbness over the left face going down the left upper extremity and lower extremity.. She was started on IV steroids and she feels 10% better. She had a lumbar puncture today which showed elevated glucose other than that was unremarkable. Objective - Vital Signs Vital signs: Vital Signs Temp 98.4 F 08/03/24 14:38 Pulse 111 H 08/03/24 14:38 Resp 20 08/03/24 14:38 BP 114/74 08/03/24 14:38 Pulse Ox 97 08/03/24 14:38 FiO2 Intake & Output 08/02/24 08/03/24 08/03/24 18:59 06:59 18:59 Intake Total 600 75 Balance 600 75 Weight 99.337 kg Intake: IV 75 Intake, IV Titration 600 Amount Sodium Chloride 0.9% 1, 600 000 ml @ 50 mls/hr IV . Q20H [facility] Rx#:[id number] Other: Voiding Method Bedside Commode # Voids 3 3 3 # Bowel Movements 0 - Exam General: Lying in bed and is not in acute distress Neuro: Patient is awake alert oriented to self place and time. Is following simple commands. No aphasia. The pupils are round equal reactive to light. The pupils are round 3 mm bilaterally. Visual martinez are full to confrontation. Extraocular movements intact no nystagmus. Decreased facial sensation to touch over the left entire face. No facial weakness. No dysarthria The motor strength is 5 out of 5 over the bilateral upper extremity. The right lower extremity is is 4+ and its limited because of pain. In the left lower extremity it was about a 1 and it was very limited because of pain. Normal tone and bulk. Sensation is decreased to touch over the left upper lower extremity. Reflexes uppers are 2+. In the patellar is 1-2+. - Labs CBC & Chem 7: 08/03/24 06:13 08/03/24 06:13 Labs: Abnormal Lab Results - Last 24 Hours (Table) 08/02/24 08/03/24 08/03/24 Range/Units 19:57 00:31 05:56 WBC (4.50-10.00) X 10*3/uL RBC (4.10-5.20) X 10*6/uL Hgb (12.0-15.0) g/dL MCHC (32.0-37.0) g/dL RDW (11.5-14.5) % Immature Gran # (0.00-0.04) X 10*3/uL Neutrophils # (1.80-7.70) X 10*3/uL Eosinophils # (0.04-0.35) X 10*3/uL APTT (22.0-30.0) sec Chloride (96-109) mmol/L Carbon Dioxide (21.6-31.8) mmol/L Anion Gap (4.00-12.00) mmol/L Glucose (70-110) mg/dL POC Glucose (mg/dL) 340 H 310 H 262 H (70-110) mg/dL CSF Glucose (40-70) mg/dL 08/03/24 08/03/24 08/03/24 Range/Units 06:13 06:13 10:36 WBC 16.30 H (4.50-10.00) X 10*3/uL RBC 4.04 L (4.10-5.20) X 10*6/uL Hgb 11.7 L (12.0-15.0) g/dL MCHC 31.5 L (32.0-37.0) g/dL RDW 15.0 H (11.5-14.5) % Immature Gran # 0.40 H (0.00-0.04) X 10*3/uL Neutrophils # 13.72 H (1.80-7.70) X 10*3/uL Eosinophils # 0 L (0.04-0.35) X 10*3/uL APTT 21.0 L (22.0-30.0) sec Chloride 110 H (96-109) mmol/L Carbon Dioxide 16.2 L (21.6-31.8) mmol/L Anion Gap 12.80 H (4.00-12.00) mmol/L Glucose 267 H (70-110) mg/dL POC Glucose (mg/dL) (70-110) mg/dL CSF Glucose (40-70) mg/dL 08/03/24 08/03/24 08/03/24 Range/Units 11:41 13:42 16:33 WBC (4.50-10.00) X 10*3/uL RBC (4.10-5.20) X 10*6/uL Hgb (12.0-15.0) g/dL MCHC (32.0-37.0) g/dL RDW (11.5-14.5) % Immature Gran # (0.00-0.04) X 10*3/uL Neutrophils # (1.80-7.70) X 10*3/uL Eosinophils # (0.04-0.35) X 10*3/uL APTT (22.0-30.0) sec Chloride (96-109) mmol/L Carbon Dioxide (21.6-31.8) mmol/L Anion Gap (4.00-12.00) mmol/L Glucose (70-110) mg/dL POC Glucose (mg/dL) 283 H 289 H (70-110) mg/dL CSF Glucose 155 H (40-70) mg/dL Assessment and Plan Assessment: * 44-year-old female with chronic back issues, diabetes has presented with left leg weakness with radiculopathy. However MRI of the lumbar spine did not reveal any significant disc herniation. Rule out lumbosacral plexopathy. * Urinary incontinence, new onset for last 2 weeks: Rule out due to MS * History of left arm and left facial numbness for last 2 years, unclear cause, rule out MS * Diabetes * Morbid obesity * Tobacco use * History of B12 deficiency Plan: * MRI of the lumbar spine with and without contrast revealed degenerative disc disease with posterior disc bulge. Mild lateral recess stenosis at L4-L5. I personally reviewed MRI, agree with the findings. No significant abnormalities. * Orthopedic surgery also has seen patient and they agree that MRI does not show any significant herniated nucleus pulposus, canal stenosis or foraminal stenosis. There are not any significant findings that correlate well with patient's symptoms. There is no evidence of cauda equina on lumbar MRI imaging. I agree with the findings, no mechanical compression. * Patient has been seen by pain management were concerned about possibility of multiple sclerosis, therefore this neurology consultation was initiated. Lumbar epidural steroid injection was recommended, but patient declined, as with her previous experience, it helped with the pain, but not with the numbness or weakness. Patient wants complete fix of her problem, "not a Band- Aid". * Pending MRI of the brain and cervical spine. * Regarding medications for neuropathic pain, patient states "has tried them a ll" and did not work. This includes Neurontin, Lyrica, Cymbalta. Pain management have started patient on Lyrica 100 mg twice a day and she is doing better. * Patient has history of B12 deficiency, and will continue B12 injections weekly. * B12 > 3600, folate 3.20, hemoglobin A1c 5.9, IgG 872, IgM 115, MENDOZA, Sjogren's antibodies negative. CRP 0.60 normal. Patient started on folate replacement. * Her left leg weakness is of unclear cause, rule out lumbosacral plexopathy. Patient has been started on Solu-Medrol 250 mg twice a day. She states that she is "10% better" * Lumbar puncture: Clear, colorless, red blood cell is 0, total nucleated cell is 1, glucose is 155 and total protein is 44. * Patient had an EMG and nerve conduction studies of lower extremities performed at her neurology office. We will try to obtain those results. She is scheduled for EMG of her upper extremities on 08/07/2024. Hopefully she will be discharged before then so she can follow-up with her neurologist. The plan discussed with the patient and her nurse was at bedside. Time with Patient: Less than 30
--- NOTE | 2024-08-03 20:44 | P.PN ---
Subjective Progress Note Date: 08/03/24 This is a pleasant 44-year-old female from [place] who presented to the emergency department with loss of bladder and lower extremity weakness more so on the left with difficulty in ambulating. Patient follows with Dr. Groves in [place] as her primary care provider and also sees Dr. Cope neurology in the outpatient setting for radiculopathy and has been undergoing multiple tests including MRI and EMG studies with another EMG of the upper extremities do this upcoming Saturday. Patient is also reporting significant amount of pain and a consult to pain management has been requested per orthopedics. Patient did undergo lumbar CT in the ER that displayed no fracture or malalignment with degenerative disc disease and a narrowing of the lateral recesses at L4-5 bilaterally, greater on the left. Lumbar MRI was ordered and patient did have it this morning which reveals degenerative disc disease with a posterior disc bulge and mild lateral recess stenosis at L4-5 patient was evaluated by orthope dics today with no plans of surgical intervention and MRI is not a suggestive of any cauda equina and has been instructed to follow-up outpatient as needed. Orthopedics did consult pain management along with urology and neurology. Labs reviewed with a mildly elevated white count of 11.53, hemoglobin stable at 12.4, platelets 381, sodium 141 with a potassium of 4.1, creatinine is 1.09 with a BUN of 12, CK is 30 and CRP is 3.4. Patient was admitted under observation for orthopedic evaluation. 08/01/2024 Patient is evaluated in follow-up in the medical floor. She continues to report significant weakness in the left leg as well as a feeling of heaviness. She is having pain from her lower back all the way down to her ankle and foot on the left as well as her knee on the right. She is not reporting any saddle paresthesias at this time but states that it does come and go. Patient had mu ltiple imaging done and was also evaluated orthopedic surgery. Neurology is currently recommending lumbar puncture at this time. Blood cell count is elevated at 16.64. Vitamin B-12 was elevated folate level is low at 3.20 blood sugars better controlled. IgG and IgM ANAs are all unremarkable. 08/02/2024 Patient is evaluated today in follow up. LP unable to be completed yesterday and IR and anesthesia are consulted for LP to be performed hopefully on Saturday. Patient has been started on high dose IV methylprednisolone for which patient states she has a 10% improvement in her symptoms. She is still having lower back pain with radicular symptoms; however she has been able to wiggle her toes today. 08/03/2024 Patient evaluated today in follow up. Continues to report mild improvement with the IV methylprednisolone. She reports increased parasthesias to her left foot however. Additonally reports sores in her mouth and on tongue combined with a frontal lobe headache. No shortness of breath. No chest pains. She is currently pending lumbar puncture. REVIEW OF SYSTEMS: CONSTITUTIONAL: No fever, no malaise, no fatigue. HEENT: No recent visual problems or hearing problems. Denied any sore throat. CARDIOVASCULAR: No chest pain, orthopnea, PND, no palpitations, no syncope. PULMONARY: No shortness of breath, no cough, no hemoptysis. GASTROINTESTINAL: No diarrhea, no nausea, no vomiting, no abdominal pain. NEUROLOGICAL: Reports of headaches, reports of generalized weakness more so of the left lower extremity, reports of intermittent numbness of the left lower extremity. PHYSICAL EXAMINATION: GENERAL: The patient is alert and oriented x3, mildly anxious. Well developed, o bese HEENT: Pupils are round and equally reacting to light. EOMI. No scleral icterus. No conjunctival pallor. Normocephalic, atraumatic. No pharyngeal erythema. No thyromegaly. CARDIOVASCULAR: S1 and S2 present. No murmurs, rubs, or gallops. PULMONARY: Chest is clear to auscultation, no wheezing or crackles. ABDOMEN: Soft, obese, nontender, nondistended, normoactive bowel sounds. No palpable organomegaly. MUSCULOSKELETAL: No joint swelling or deformity. EXTREMITIES: No cyanosis, clubbing, or pedal edema. Positive pulses noted bilaterally of lower extremities, strength 3/5 on the left lower extremity NEUROLOGICAL: Gross neurological examination did not reveal any focal deficits. Diffusely weak SKIN: No rashes. Assessment: Intractable back pain with lower extremity weakness, worse on the left, likely secondary to radiculopathy Leukocytosis, likely reactive Urinary incontinence History of diabetes mellitus, type II, uncontrolled with hyperglycemia Diabetic Neuropathy Hypertension history History of pernicious anemia History of ovarian cancer previously History of anxiety Continued ongoing nicotine abuse Obesity with a BMI 36.4 GI prophylaxis DVT prophylaxis Full code Plan: Patient was admitted with intractable back pain and lower extremity weakness more so on the left with urinary incontinence x 2 underwent imaging including MRI as mentioned above with no acute findings noted other than degenerative disc disease on orthopedics recommending conservative management and may follow-up as needed Neurology and urology has been consulted with concerns of incontinence episodes x 2 and further neurological workup. Patient does follow with Dr. Cope in the outpatient setting and is undergoing further neurological workup including multiple EMGs, MRI and upper EMGs that are scheduled to be on Saturday. Patient does have significant diabetes although is insulin-dependent and will be managed in the outpatient setting by her primary care provider. Patient does not want to go to endocrine she was referred to. Hemoglobin A1c per patient is 5.2. Continue accuchecks ACHS and long acting insulin; adjust as needed Continue IV methylprednisolone per neurology Pending LP to be completed by either anesthesia or IR tomorrow Patient will need a walker on discharge in order to perform her ADLs secondary to significant radiculopathy with lower extremity weakness and paresthesias. Pending LP to be completed by anesthesia today Increase lyrica; add cymbalta Increase lantus Add cools solution The impression and plan of care has been dictated by Raisa Cline, Nurse Practitioner as directed. Dr. Kendrick MD I have performed a history and examination and MDM of this patient, discussed the same with the dictator, and agree with the dictator's assessment and plan as written ,documented as a scribe. Based on total visit time, I have performed more than 50% of the visit. Objective - Vital Signs Vital signs: Vital Signs Temp 98.1 F 08/03/24 19:37 Pulse 113 H 08/03/24 19:37 Resp 18 08/03/24 19:37 BP 138/88 08/03/24 19:37 Pulse Ox 97 08/03/24 19:37 FiO2 Intake & Output 08/03/24 08/03/24 08/04/24 06:59 18:59 06:59 Intake Total 600 75 Balance 600 75 Weight 99.337 kg Intake: IV 75 Intake, IV Titration 600 Amount Sodium Chloride 0.9% 1, 600 000 ml @ 50 mls/hr IV . Q20H [facility] Rx#:[id number] Other: # Voids 3 3 - Labs CBC & Chem 7: 08/03/24 06:13 08/03/24 06:13 Labs: Abnormal Lab Results - Last 24 Hours (Table) 08/03/24 08/03/24 08/03/24 Range/Units 00:31 05:56 06:13 WBC 16.30 H (4.50-10.00) X 10*3/uL RBC 4.04 L (4.10-5.20) X 10*6/uL Hgb 11.7 L (12.0-15.0) g/dL MCHC 31.5 L (32.0-37.0) g/dL RDW 15.0 H (11.5-14.5) % Immature Gran # 0.40 H (0.00-0.04) X 10*3/uL Neutrophils # 13.72 H (1.80-7.70) X 10*3/uL Eosinophils # 0 L (0.04-0.35) X 10*3/uL APTT (22.0-30.0) sec Chloride (96-109) mmol/L Carbon Dioxide (21.6-31.8) mmol/L Anion Gap (4.00-12.00) mmol/L Glucose (70-110) mg/dL POC Glucose (mg/dL) 310 H 262 H (70-110) mg/dL CSF Glucose (40-70) mg/dL 08/03/24 08/03/24 08/03/24 Range/Units 06:13 10:36 11:41 WBC (4.50-10.00) X 10*3/uL RBC (4.10-5.20) X 10*6/uL Hgb (12.0-15.0) g/dL MCHC (32.0-37.0) g/dL RDW (11.5-14.5) % Immature Gran # (0.00-0.04) X 10*3/uL Neutrophils # (1.80-7.70) X 10*3/uL Eosinophils # (0.04-0.35) X 10*3/uL APTT 21.0 L (22.0-30.0) sec Chloride 110 H (96-109) mmol/L Carbon Dioxide 16.2 L (21.6-31.8) mmol/L Anion Gap 12.80 H (4.00-12.00) mmol/L Glucose 267 H (70-110) mg/dL POC Glucose (mg/dL) 283 H (70-110) mg/dL CSF Glucose (40-70) mg/dL 08/03/24 08/03/24 Range/Units 13:42 16:33 WBC (4.50-10.00) X 10*3/uL RBC (4.10-5.20) X 10*6/uL Hgb (12.0-15.0) g/dL MCHC (32.0-37.0) g/dL RDW (11.5-14.5) % Immature Gran # (0.00-0.04) X 10*3/uL Neutrophils # (1.80-7.70) X 10*3/uL Eosinophils # (0.04-0.35) X 10*3/uL APTT (22.0-30.0) sec Chloride (96-109) mmol/L Carbon Dioxide (21.6-31.8) mmol/L Anion Gap (4.00-12.00) mmol/L Glucose (70-110) mg/dL POC Glucose (mg/dL) 289 H (70-110) mg/dL CSF Glucose 155 H (40-70) mg/dL Assessment and Plan Time with Patient: Less than 30
[2024-08-03 20:47] LABS: Glucose,Whole Blood 374 mg/dL (70-110)
[2024-08-03] MEDS: PREGABALIN 75 MG CAP PO SCH (21:45)
[2024-08-03] MEDS: INSULIN GLARGINE (LANTUS) 100 UNIT/ML SYR SQ SCH (21:46)
[2024-08-04 04:31] LABS: Methylmalonic Acid 0.19 umol/L (<0.40)
[2024-08-04 06:17] LABS: Glucose,Whole Blood 268 mg/dL (70-110)
[2024-08-04 08:34] LABS: Basophils # (A) 0.07 X 10*3/uL (0.00-0.10); Basophils % (A) 0.4 %; Eosinophils # (A) 0.06 X 10*3/uL (0.04-0.35); Eosinophils % (A) 0.4 %; HGB 11.6 g/dL (12.0-15.0); Lymphocytes # (A) 1.71 X 10*3/uL (0.90-5.00); Lymphocytes % (A) 10.1 %; MCH 28.9 pg (27.0-32.0); MCHC 31.4 g/dL (32.0-37.0); Mean Platelet Volume 11.3 FL (9.5-12.2); Monocytes # (A) 0.63 X 10*3/uL (0.20-1.00); Monocytes % (A) 3.7 %; NRBC Per 100 WBC 0 X 10*3/uL (0.00-0.01); Neutrophils # (A) 13.77 X 10*3/uL (1.80-7.70); Neutrophils % (A) 81.7 %; Platelet Count 396 X 10*3/uL (140-440); RBC 4.02 X 10*6/uL (4.10-5.20); WBC 16.87 X 10*3/uL (4.50-10.00)
[2024-08-04 09:01] LABS: Calcium 9.3 mg/dL (8.7-10.3); Carbon Dioxide 15.5 mmol/L (21.6-31.8); Chloride 112 mmol/L (96-109); Glucose 197 mg/dL (70-110); Potassium 4.5 mmol/L (3.5-5.5); Sodium 139 mmol/L (135-145)
[2024-08-04 11:43] LABS: Glucose,Whole Blood 218 mg/dL (70-110)
[2024-08-04] MEDS: LORazepam 1 MG/0.5 ML VIAL IV ONE (11:52)
--- NOTE | 2024-08-04 13:37 | MR ---
INDICATION: Patient age:Female; 44 years old; Reason for study: Weakness, rule out MS; PHH. COMPARISON: None. TECHNIQUE: Multi planar, multi sequence imaging was performed through the brain. The patient was then given 10 cc of Gadobutrol intravenously and multi planar, T1 fat-saturation images were obtained. MS protocol utilized. FINDINGS: Motion degraded examination. The manrique-white junctions, ventricular system, basal cisterns appear unremarkable. Age-appropriate cer ebral parenchymal volume. Diffusion-weighted imaging shows no evidence of restricted diffusion to sug gest acute/subacute infarct. Intracranial arterial flow voids are maintained. Midline structures show no abnormality. No FLAIR signal abnormalities. The susceptibility weighted images do not reveal any evidence for micro-hemorrhage. After administration of gadolinium, no abnormal enhancement is seen. The bone marrow signal is within normal limits. The globes are unremarkable. Mild mucosal thickenin g in the posterior right ethmoid sinus. IMPRESSION: No evidence of intracranial mass, acute/subacute infarct, or abnormal enhancement. [facility], , 08/04/2024 1:35 PM
--- NOTE | 2024-08-04 13:43 | MR ---
INDICATION: Patient age:Female; 44 years old; Reason for study: Weakness, rule out MS; PHH. COMPARISON: MR brain of the same date. TECHNIQUE: Multi planar, multi sequence imaging was performed of the cervical spine. No Gadolinium wa s given. MS protocol utilized. FINDINGS: Motion degraded examination. Alignment: The cervical vertebral bodies have preserved heights. Alignment is within normal limits gi lucia patient positioning. Bones: Bone signal is within normal limits. Cord: The spinal cord is unremarkable with regards to their signal intensity and morphology. No abnor mal STIR signal. Discs: Multilevel disc desiccation is present with preserved disc heights. C2-C3: No significant disc pathology. The spinal canal is patent. No neural foraminal stenosis. C3-C4: Minimal broad-based disc bulge without significant effacement of the anterior thecal sac. No s ignificant spinal canal stenosis. No neural foraminal stenosis. C4-C5: Minimal broad-based disc bulge without significant effacement of the anterior thecal sac. No s ignificant spinal canal stenosis. No neural foraminal stenosis. C5-C6: Minimal broad-based disc bulge without significant effacement of the anterior thecal sac. No s ignificant spinal canal stenosis. No neural foraminal stenosis. C6-C7: Minimal broad-based disc bulge without significant effacement of the anterior thecal sac. No s ignificant spinal canal stenosis. No neural foraminal stenosis. C7-T1: No significant disc pathology. The spinal canal is patent. No neural foraminal stenosis. Other: None. IMPRESSION: 1. No evidence for disc herniation or significant spinal canal stenosis. No abnormal spinal cord sign al to suggest demyelination. 2. Minimal multilevel disc degeneration. [facility], , 08/04/2024 1:40 PM
[2024-08-04 15:22] VITALS: BP 129/85; PULSE 100; RESP 20; TEMP 98.3
--- NOTE | 2024-08-04 17:41 | P.PN ---
Subjective Progress Note Date: 08/04/24 I initially went to see the patient but she was in MRI. After completing her MRI it is reported the MRI of the brain is negative for acute intracranial mass, acute or subacute infarct or abnormal enhancement. Also MRI of the cervical spine is negative for any abnormal enhancing or any demyelination. Patient continues to state that she has significant weakness in the left lower extremity and she cannot move it as well as she has numbness from the face all the way down. She is concerned that her diabetes that was undiagnosed years back was a result of this. I was notified by nurse she is able to walk to her beside [employer] without assistance. Objective - Vital Signs Vital signs: Vital Signs Temp 98.3 F 08/04/24 13:55 Pulse 100 08/04/24 13:55 Resp 20 08/04/24 13:55 BP 129/85 08/04/24 13:55 Pulse Ox 97 08/04/24 13:55 FiO2 Intake & Output 08/03/24 08/04/24 08/04/24 18:59 06:59 18:59 Intake Total 75 Balance 75 Weight 99.337 kg Intake: IV 75 Other: # Voids 3 6 1 - Exam General: Lying in bed and is not in acute distress Neuro: Patient is awake alert oriented to self place and time. Is following simple commands. No aphasia. The pupils are round equal reactive to light. The pupils are round 3 mm bilaterally. Visual martinez are full to confrontation. Extraocular movements intact no nystagmus. Decreased facial sensation to touch over the left entire face. No facial weakness. No dysarthria The motor strength is 5 out of 5 over the bilateral upper extremity. The right lower extremity is is 5/5. In the left lower initially she had her left legs crossed then was able to uncross them. Upon asking the patient to lift above gravity in the left lower she stated she could not and no strength was noted. Normal tone and bulk. Sensation is decreased to touch over the left upper lower extremity. Reflexes uppers are 2+. In the patellar is 1-2+. - Labs CBC & Chem 7: 08/04/24 03:28 08/04/24 03:28 Labs: Abnormal Lab Results - Last 24 Hours (Table) 08/03/24 08/04/24 08/04/24 Range/Units 20:45 03:28 03:28 WBC 16.87 H (4.50-10.00) X 10*3/uL RBC 4.02 L (4.10-5.20) X 10*6/uL Hgb 11.6 L (12.0-15.0) g/dL Hct 37.0 L (37.2-46.3) % MCHC 31.4 L (32.0-37.0) g/dL RDW 15.0 H (11.5-14.5) % Immature Gran # 0.63 H (0.00-0.04) X 10*3/uL Neutrophils # 13.77 H (1.80-7.70) X 10*3/uL Chloride 112 H (96-109) mmol/L Carbon Dioxide 15.5 L (21.6-31.8) mmol/L Glucose 197 H (70-110) mg/dL POC Glucose (mg/dL) 374 H (70-110) mg/dL 08/04/24 08/04/24 Range/Units 06:15 11:41 WBC (4.50-10.00) X 10*3/uL RBC (4.10-5.20) X 10*6/uL Hgb (12.0-15.0) g/dL Hct (37.2-46.3) % MCHC (32.0-37.0) g/dL RDW (11.5-14.5) % Immature Gran # (0.00-0.04) X 10*3/uL Neutrophils # (1.80-7.70) X 10*3/uL Chloride (96-109) mmol/L Carbon Dioxide (21.6-31.8) mmol/L Glucose (70-110) mg/dL POC Glucose (mg/dL) 268 H 218 H (70-110) mg/dL Microbiology - Last 24 Hours (Table) 08/03/24 13:42 CSF Gram Stain - Preliminary Cerebral Spinal Fluid CSF Culture - Preliminary Assessment and Plan Assessment: * 44-year-old female with chronic back issues, diabetes has presented with left leg weakness with radiculopathy. However MRI of the lumbar spine did not reveal any significant disc herniation. * Has left acute lower extremity weakness with ongoing history of numbness of facial and upper and lower extremity on left: MRI Brain and C-spine is negative for acute/subacute stroke or enhancement or lesion suggestion of MS. CSF shows elevated glucose. Rule out ?Lumbar Plexopathy but her reflexes are fairly normal and this diagnosis would not explain her left upper extremity numbness including face. One of differential is functional neurological disorder. * Urinary incontinence, new onset for last 2 weeks * History of left arm and left facial numbness for last 2 years, unclear cause, rule out MS * Diabetes * Morbid obesity * Tobacco use * History of B12 deficiency Plan: * MRI of the lumbar spine with and without contrast revealed degenerative disc disease with posterior disc bulge. Mild lateral recess stenosis at L4-L5. I personally reviewed MRI, agree with the findings. No significant abn ormalities. * Orthopedic surgery also has seen patient and they agree that MRI does not show any significant herniated nucleus pulposus, canal stenosis or foraminal stenosis. There are not any significant findings that correlate well with patient's symptoms. There is no evidence of cauda equina on lumbar MRI imaging. I agree with the findings, no mechanical compression. * Patient has been seen by pain management were concerned about possibility of multiple sclerosis, therefore this neurology consultation was initiated. Lumbar epidural steroid injection was recommended, but patient declined, as with her previous experience, it helped with the pain, but not with the numbness or weakness. * MRI of the brain and cervical spine is negative for acute or subacute stroke or enhancement. * Regarding medications for neuropathic pain, patient states "has tried them all" and did not work. This includes Neurontin, Lyrica, Cymbalta. Pain management have started patient on Lyrica 100 mg twice a day and she is doing better. * Patient has history of B12 deficiency, and will continue B12 injections weekly. * B12 > 3600, folate 3.20, hemoglobin A1c 5.9, IgG 872, IgM 115, MENDOZA, Sjogren's antibodies negative. CRP 0.60 normal. Patient started on folate replacement. * Her left leg weakness is of unclear cause, rule out lumbosacral plexopathy. Patient has been started on Solu-Medrol 250 mg twice a day by Dr. Black. She states she feels better. From neurological perspective no further needed for IV Steroids. * Lumbar puncture: Clear, colorless, red blood cell is 0, total nucleated cell is 1, glucose is 155 and total protein is 44. * Patient had an EMG and nerve conduction studies of lower extremities performed at her neurology office. We will try to obtain those results. She is scheduled for EMG of her upper extremities on 08/07/2024. Hopefully she will be discharged before then so she can follow-up with her neurologist. She states her EMG was abnormal. * Recommend the patient to follow-up with psychiatrist as outpatient if her EMG does not explain her symptoms for concern of functional neurological disorder. * I was notified by primary team N.P. that physical therapy cleared the patient to be discharged home. The plan discussed with the patient, her who is at bedside, primary team N.P. and her nurse. Time with Patient: Less than 30
[2024-08-06] MEDS ORDERED: CYANOCOBALAMIN 1,000 MCG/ML 1 ML VIAL SQ SCH (09:00)
[2024-08-06 12:41] LABS: IgG - CSF 1.9 mg/dL (0.0 - 3.4); IgG/Albumin Index (CSF) 0.57 (0.00 - 0.77); Immunoglobulin G 788 mg/dL (700 - 1600)
--- NOTE | 2024-08-11 14:48 | P.DS ---
Providers Date of admission: 07/31/24 00:47 Attending physician: Mirna Blackmon Consults: 07/31/24 00:43 Consult Physician Routine Consulting Provider: Mauricio Oswald Consult Reason/Comments: Back pain. Incontinence Do you want consulting provider notified?: Yes 07/31/24 12:20 Consult Physician Routine Consulting Provider: Derek Black Consult Reason/Comments: Loss of bladder, LE numbness Do you want consulting provider notified?: Yes 07/31/24 22:01 Consult to Anesthesia Stat Consulting Provider: Anesthesia,Services Consult Reason/Comments: LUMBAR PUNCTURE 08/01/24 18:29 Consult to Anesthesia Routine Consulting Provider: Anesthesia,Services Consult Reason/Comments: do LP, need longer needle 5" Primary care physician: Stated None Hospital Course: Final Diagnosis Intractable back pain with lower extremity weakness, worse on the left, likely secondary to radiculopathy Leukocytosis, likely reactive Urinary incontinence History of diabetes mellitus, type II, uncontrolled with hyperglycemia Diabetic Neuropathy Hypertension history History of pernicious anemia History of ovarian cancer previously History of anxiety Continued ongoing nicotine abuse Obesity with a BMI 36.4 Discharge Disposition Stable for DC home recommending to follow up with her known neurologist and neuromuscular specialist. Complete prednisone taper. Follow up with pain management. Hospital Course This is a pleasant 44-year-old female from [place] who presented to the emergency department with loss of bladder and lower extremity weakness more so on the left with difficulty in ambulating. Patient follows with Dr. Groves in [place] as her primary care provider and also sees Dr. Cope neurology in the outpatient setting for radiculopathy and has been undergoing multiple tests including MRI and EMG studies with another EMG of the upper extremities do this upcoming Saturday. Patient is also reporting significant amount of pain and a consult to pain management has been requested per orthopedics. Patient did undergo lumbar CT in the ER that displayed no fracture or malalignment with degenerative disc disease and a narrowing of the lateral recesses at L4-5 bilaterally, greater on the left. Lumbar MRI was ordered and patient did have it this morning which reveals degenerative disc disease with a posterior disc bulge and mild lateral recess stenosis at L4-5 patient was evaluated by orthoped ics today with no plans of surgical intervention and MRI is not a suggestive of any cauda equina and has been instructed to follow-up outpatient as needed. Orthopedics did consult pain management along with urology and neurology. Labs reviewed with a mildly elevated white count of 11.53, hemoglobin stable at 12.4, platelets 381, sodium 141 with a potassium of 4.1, creatinine is 1.09 with a BUN of 12, CK is 30 and CRP is 3.4. Patient was admitted under observation for orthopedic evaluation. Patient was admitted with intractable back pain and lower extremity weakness more so on the left with urinary incontinence x 2 underwent imaging including MRI as mentioned above with no acute findings noted other than degenerative disc disease on orthopedics recommending conservative management and may follow-up as needed. Vitamin B-12 was elevated folate level is low at 3.20 blood sugars better controlled. IgG and IgM ANAs are all unremarkable. Patient was started on IV methylprednisolone and did have some improvement in the left leg weakness. Lumbar puncture completed and unremarkable. Patient discharged home advised to see her primary neurologist. PT had cleared her for DC home. Walker was provided. Please see medication reconciliation for a list of current medications. Thank you for allowing us to participate in the care of this patient. The impression and plan of care has been dictated by Raisa Cline, Nurse Practitioner as directed. Dr. Kendrick MD I have performed a history and examination and MDM of this patient, discussed the same with the dictator, and agree with the dictator's assessment and plan as written ,documented as a scribe. Based on total visit time, I have performed more than 50% of the visit. Patient Condition at Discharge: Fair Plan - Discharge Summary Discharge Rx Participant: Yes New Discharge Prescriptions: New [place]/APAP/Caff 50-325-40Mg [Fioricet 50-325-40] 1 each PO Q6HR PRN #20 tab PRN Reason: Headache Pregabalin [Lyrica] 150 mg PO BID 30 Days #120 cap HYDROcodone/APAP 5-325MG [[place] 5-325] 1 each PO Q6HR PRN 3 Days #12 tab PRN Reason: Moderate Pain (Scale 4 To 6) Ondansetron [Zofran] 4 mg PO Q8HR PRN #15 tab PRN Reason: Nausea DULoxetine HCL [Cymbalta] 30 mg PO DAILY #30 cap Folic Acid 1 mg PO DAILY #30 tab methylPREDNISolone Dose Pack [Medrol Dose Pack] 4 mg PO DIRECTED #21 tab Continue Insulin Glargine-Yfgn [Semglee (Yfgn) Pen] 25 unit SQ BID Tirzepatide [Mounjaro] 10 mg SQ FR Ergocalciferol [Vitamin D2 (1250 Mcg = 89542 Iu)] 1,250 mcg PO FR Aspirin [[place] Aspirin EC] 81 mg PO DAILY Metoprolol Tartrate [Lopressor] 25 mg PO BID medroxyPROGESTERone [Depo-Provera] 150 mg IM Q90D Insulin Lispro [Insulin Lispro Kwikpen U-100] 15 unit SQ TID-W/MEALS Topiramate 50 mg PO BID Cyanocobalamin [Vitamin B-12 Injection] 2,000 mcg SQ TH Cholecalciferol [Vitamin D3 (125 Mcg = 5000 Iu)] 125 mcg PO DAILY Losartan [Cozaar] 50 mg PO DAILY Nicotine 21Mg/24Hr Patch [Habitrol] 1 tab TRANSDERM DAILY Changed Omeprazole 40 mg PO DAILY #0 Discontinued diazePAM [Valium] 5 mg PO TID PRN PRN Reason: Anxiety Discharge Medication List Aspirin [[place] Aspirin EC] 81 mg PO DAILY 07/31/24 [History] Cholecalciferol [Vitamin D3 (125 Mcg = 5000 Iu)] 125 mcg PO DAILY 07/31/24 [History] Cyanocobalamin [Vitamin B-12 Injection] 2,000 mcg SQ TH 07/31/24 [History] Ergocalciferol [Vitamin D2 (1250 Mcg = 12057 Iu)] 1,250 mcg PO FR 07/31/24 [History] HYDROcodone/APAP 5-325MG [[place] 5-325] 1 each PO Q6HR PRN 3 Days #12 tab 07/31/24 [Rx] Insulin Glargine-Yfgn [Semglee (Yfgn) Pen] 25 unit SQ BID 07/31/24 [History] Insulin Lispro [Insulin Lispro Kwikpen U-100] 15 unit SQ TID-W/MEALS 07/31/24 [History] Losartan [Cozaar] 50 mg PO DAILY 07/31/24 [History] Metoprolol Tartrate [Lopressor] 25 mg PO BID 07/31/24 [History] Nicotine 21Mg/24Hr Patch [Habitrol] 1 tab TRANSDERM DAILY 07/31/24 [History] Ondansetron [Zofran] 4 mg PO Q8HR PRN #15 tab 07/31/24 [Rx] Tirzepatide [Mounjaro] 10 mg SQ FR 07/31/24 [History] Topiramate 50 mg PO BID 07/31/24 [History] medroxyPROGESTERone [Depo-Provera] 150 mg IM Q90D 07/31/24 [History] Butalb/APAP/Caff 50-325-40Mg [Fioricet 50-325-40] 1 each PO Q6HR PRN #20 tab 08/04/24 [Rx] DULoxetine HCL [Cymbalta] 30 mg PO DAILY #30 cap 08/04/24 [Rx] Folic Acid 1 mg PO DAILY #30 tab 08/04/24 [Rx] Omeprazole 40 mg PO DAILY #0 08/04/24 [Rx] Pregabalin [Lyrica] 150 mg PO BID 30 Days #120 cap 08/04/24 [Rx] methylPREDNISolone Dose Pack [Medrol Dose Pack] 4 mg PO DIRECTED #21 tab 08/04/24 [Rx] Follow up Appointment(s)/Referral(s): Oleksandr Ortiz PAC [PHYSICIAN MOLECULAR BIOLOGY PROFESSOR] - As Needed (office is closed at time of discharge. Please call for follow-up appointment.) Young Devlin MD [STAFF PHYSICIAN] - 1 Week (left message with office) Leisa Cope MD [Medical Doctor] - 1 Week (Office is closed at time of discharge. Please call for follow-up appointment.) None,Stated [Primary Care Provider] - 1-2 days (Please call a primary care provider for follow-up appointment) [facility] [NON-STAFF] - 1 Week (Make an appt to see Dr Devlin ) [facility] [NON-STAFF] - 1 Week (Primary care clinic ) Activity/Diet/Wound Care/Special Instructions: Patient requires a walker for unsteady gait due to back pain and radiculopathy not completed by a cane or crutches for completion of ADLs. Keep your same follow up appts with Dr Cope as prior Keep your appt for EMG Do not drive while taking norco Follow back up with active PT to continue outpatient physical therapy Discharge Disposition: HOME WITH HOME HEALTH SERVICES
== END 2024-08-04 16:49 | disposition home or self-care (01) | DRG 347 ==
LOC: EC 22:30 → 6NMEDSUR 07-31 00:47 → OBSVTOIN 07-31 00:47 → 4SSUR 07-31 01:48
PROVIDERS: ADMIT Hospitalist; ATTEND Hospitalist
PROC: 00JU3ZZ Inspection of Spinal Canal, Percutaneous Approach (ICD-10-PCS; principal; 2024-08-01)
PROC: 009U3ZX Drainage of Spinal Canal, Percutaneous Approach, Diagnostic (ICD-10-PCS; 2024-08-03)
DX: M51.16 Intervertebral disc disorders with radiculopathy, lumbar region (principal); R32 Unspecified urinary incontinence; F17.200 Nicotine dependence, unspecified, uncomplicated; E11.40 Type 2 diabetes mellitus with diabetic neuropathy, unspecified; M48.061 Spinal stenosis, lumbar region without neurogenic claudication; G35 Multiple sclerosis; E66.01 Morbid (severe) obesity due to excess calories; E11.65 Type 2 diabetes mellitus with hyperglycemia; D72.829 Elevated white blood cell count, unspecified; I10 Essential (primary) hypertension; Z88.5 Allergy status to narcotic agent; Z88.0 Allergy status to penicillin; Z88.2 Allergy status to sulfonamides; Z79.899 Other long term (current) drug therapy; Z79.4 Long term (current) use of insulin; Z85.43 Personal history of malignant neoplasm of ovary; Z68.36 Body mass index [BMI] 36.0-36.9, adult; Z79.82 Long term (current) use of aspirin
CPT/HCPCS: 36415; 62270; 70553; 72131; 72141; 72158; 80048; 80053; 81001; 82040; 82042; 82164; 82550; 82607; 82746; 82784; 82945; 83036; 83735; 83916; 83921; 84157; 84207; 85025; 85610; 85652; 85730; 86038; 86140; 86235; 86334; 86618; 87070; 87205; 87496; 87498; 87529; 87798; 89050; 96374; 96375; 99285

== ENCOUNTER → 2024-08-19 | Outpatient (CLI) | payer OTHER ==
[2024-08-19 09:45] VITALS: BP 130/91; PULSE 107; RESP 16; TEMP 97.1
--- NOTE | 2024-08-19 16:00 | P.PAINPG ---
PQRS Measure Charge Sheet Comment: A 44 yr old female w son at side with a history of MS and severe and chronic LBP secondary to radiculopathy, spondylosis with facet arthropathy without myelopathy presents today for evaluation. Pain level is provoked at 6 /10 in intensity, constant, predominantly axial, localized in the lumbar spine, burning in character w occasional shooting towards the buttocks and LEs. Pain is provoked by over activity. Pain is alleviated with a physician guided home stretching regimen daily since May 2024, heat, medications, topical, use of a LSO, use of a walker for ambulatory assistance, repositioning and rest. 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 Oswestry axial pain score at 23. Interventional pain procedures completed include Patient is currently on [place], BioFreeze, Icy-Hot Patient denies any side effects of the medication(s), denies excessive drows iness or sleepiness, denies suicidal ideation and reports that the current pain medication is helping to control the pain and improve activities of daily living. Patient denies any motor or sensory deficits. Patient denies any fever or night sweats, denies any change in the bowel movements or urination. Physical Examination: -Constitutional: Cooperative. Not in acute distress . - Neurologic: Cranial nerve II to XII intact. No focal neurological deficits. - Psychatric: Alert & oriented x 3. Matching mood & appropriate affect. Judgment and insight intact. - Musculoskeletal: Cervical spine: Muscle bulk/ tone/ strength in the bilateral upper extremities normal Vertebral body tenderness to palpation over [place] test positive Distraction test positive Facet loading test positive TTP Thoracic spine Muscle bulk / tone/ strength in the bilateral paraspinal muscles normal Vertebral body tender to palpation over Facet loading test positive TTP Lumbar spine: Motor bulk/ tone/ strength lower extremities , thigh and legs : 5/5 Deep tendon reflexes : Normal Knee Jerk. Normal Ankle Jerk . Vertebral body tenderness to palpation over L5 [place] Test positive L L4-L5/ L5-S1 Lumbar Facet Loading Test positive Straight Leg Raise: positive at 30 degrees right side/ left side Gaenslen's Test positive Sacral spine : Severe tenderness over the Sacroiliac joint: right side / left side Range of motion: Flexion of the lumbar spine <60 degrees Range of motion: Extension of the lumbar spine <20 degrees Gaenslen's Test positive right side / left side Eddie test: positive right side / left side Thigh Thrust Test positive right side / left side Sacral Thrust Test positive right side / left side Imaging: MRI non contrast of the lumbar spine: L3-4 L4-5 disc desiccation, L4-5 disc bulging with mild spinal stenosis at L4-5 Assessment and plan: Chronic LBP secondary to lumbar radiculopathy, spondylosis with facet arthropathy without myelopathy Recommendation of L TFESI L4-L5/ L5-S1 #1. Risks, benefits of procedure discussed and pt verbalized understanding. Admits to anticoagulant use or medical history of diabetes. Protocol for discontinuation/ continuation of medications annalise procedure discussed. All questions answered. Chronic and current use of high-risk medication (Opioids). The patient was counseled about risk of opioid use, psychological risk as sociated with opioids and was orally counseled to not overuse , divert or sell medications. Pt is to store medication in a safe location. The patient is counseled against driving while using narcotic medications and also not to use alcohol or any illicit recreational drugs. Patient verbalized understanding that the lack of compliance will result in failure to renew narcotic prescription(s) as well as possible discharge from the clinic Diagnoses, prognosis and treatment options including but not limited to physical therapy, surgical interventions, interventional therapies and medication management including narcotics and adjuvant medication were discussed. All patient questions answered MAPS reviewed and it was appropriate. Prescription refill for Fioricet #100 NR. Opiate/ narcotic agreement signed 08/19/24 I have spent less than 30 minutes on patient care today. Dr Devlin was available by phone for the evaluation of this patient. The time was used to review the medical records including relevant urine studies and Prescription history (MAPs), review of the available imaging, evaluation and examination of the patient, coordination of care with the medical staff and if applicable referring physicians, as well as creation of the medical record - Pain Location Bilateral Lower Back Non-Pharmacological Interventions: Exercise, Heat, Home Exercise, Inactivity, Physical Therapy, Position/Reposition, Sitting, Stretching Pharmacological Interventions: Epidural, PRN Medication, Scheduled Medication, Topical Medication Home Medications: Ambulatory Orders Aspirin [[place] Aspirin EC] 81 mg PO DAILY 07/31/24 Cholecalciferol [Vitamin D3 (125 Mcg = 5000 Iu)] 125 mcg PO DAILY 07/31/24 Cyanocobalamin [Vitamin B-12 Injection] 2,000 mcg SQ TH 07/31/24 Ergocalciferol [Vitamin D2 (1250 Mcg = 43295 Iu)] 1,250 mcg PO FR 07/31/24 Insulin Glargine-Yfgn [Semglee (Yfgn) Pen] 25 unit SQ BID 07/31/24 Insulin Lispro [Insulin Lispro Kwikpen U-100] 15 unit SQ TID-W/MEALS 07/31/24 Losartan [Cozaar] 50 mg PO DAILY 07/31/24 Metoprolol Tartrate [Lopressor] 25 mg PO BID 07/31/24 Nicotine 21Mg/24Hr Patch [Habitrol] 1 tab TRANSDERM DAILY 07/31/24 Tirzepatide [Mounjaro] 10 mg SQ FR 07/31/24 Topiramate 50 mg PO BID 07/31/24 medroxyPROGESTERone [Depo-Provera] 150 mg IM Q90D 07/31/24 DULoxetine HCL [Cymbalta] 30 mg PO DAILY #30 cap 08/04/24 Folic Acid 1 mg PO DAILY #30 tab 08/04/24 Omeprazole 40 mg PO DAILY #0 08/04/24 Pregabalin [Lyrica] 150 mg PO BID 30 Days #120 cap 08/04/24 methylPREDNISolone Dose Pack [Medrol Dose Pack] 4 mg PO DIRECTED #21 tab 08/04/24 Butalb/APAP/Caff 50-325-40Mg [Fioricet 50-325-40] 1 each PO Q6HR PRN 30 Days #100 tab 08/19/24 HYDROcodone/APAP 5-325MG [[place] 5-325] 1 each PO Q4H PRN 3 Days #18 tab 08/19/24 Ondansetron [Zofran] 4 mg PO Q8HR PRN 30 Days #60 tab 08/19/24 Controlled Substance Measures - Controlled Substance Measures Is patient prescribed a controlled substance at discharge?: Yes When asked, does pt state using other controlled substances?: Yes If prescribed controlled substance>3 days was MAPS reviewed?: Yes If Rx opioid, was Start Talking consent form obtained?: Yes Was information provided regarding opioid addiction?: Yes
== END ==
LOC: PNWHC3 08:52
PROVIDERS: ATTEND Specialist
DX: M47.26 Other spondylosis with radiculopathy, lumbar region (principal); G89.29 Other chronic pain; Z88.5 Allergy status to narcotic agent; Z88.0 Allergy status to penicillin; Z88.2 Allergy status to sulfonamides; Z88.8 Allergy status to other drugs, medicaments and biological substances
CPT/HCPCS: 99211

== ENCOUNTER 2024-09-10 10:02 | Day surgery (SDC) | payer OTHER ==
[~2024-09-10 10:02] MED LIST: LACTATED RINGERS 1,000 ML IV SCH
[2024-09-10 10:38] LABS: Glucose,Whole Blood 106 mg/dL (70-110)
[2024-09-10 10:40] VITALS: TEMP 98
[2024-09-10] MEDS: ALPRAZolam 0.5 MG TAB PO STA (10:43)
[2024-09-10] MEDS ORDERED: methylPREDNISolone ACETATE 40 MG/ML 1 ML VIAL ONE (11:38)
[2024-09-10] MEDS ORDERED: IOPAMIDOL M300 15ML VIAL ONE (11:38)
[2024-09-10 11:58] VITALS: RESP 16
--- NOTE | 2024-09-10 11:59 | P.PCN ---
Description of Procedure: PREOPERATIVE DIAGNOSIS: 1- Lumbar Degenerative Disc Diseases 2-Lumbar spondylosis with Facet arthropathy without myelopathy. 3-lumbar spinal stenosis POSTOPERATIVE DIAGNOSIS: 1-lumbar degenerative disc disease. 2-lumbar spondylosis with facet arthropathy without myelopathy. 3-lumbar spinal stenosis. PROCEDURE Injection of radio contrast material into L4-5 interspace, interpretation of epidurogram, injection of steroid at L4- 5 epidural space under fluoroscopic guidance. ANESTHESIA: Lidocaine 1% subcutaneously. In OR continuous pulse ox, EKG, blood pressure and verbal communication was maintained with the patient. EBL: Minimal PROCEDURE INDICATION: Before the procedure were discussed with the patient detailed procedure, alternatives, complications including infection, bleeding, nerve damage, paralysis all of which could be permanent. Patient understands and all questions were answered. As patient's symptoms are bilateral lower extremities, decided to change from transforaminal to interlaminar epidural steroid injection. Discussed with the patient. PROCEDURE DESCRIPTION : After getting consent, patient in OR in prone position. Back was prepped with chlorhexidine and draped in sterile fashion. After injecting 10 mL of 1% lidocaine subcutaneously, a 20-gauge Tuohy needle was introduced at L4 5 inter space with loss of resistance technique using a syringe filled with air. Negative CSF, negative blood, negative paresthesia. Needle position was confirmed with AP and lateral view of the fluoroscope. After repeat negative aspiration 2 mL of Omnipaque 200 water soluble contrast was injected. Contrast was noted in the epidural space. No contrast was noted into intrathecal or intravascular space. After repeat negative aspiration 6 mL solution was injected intermittently which consists of 5 mL of preservative-free normal saline mixed with 1 mL of 40 mg Depo-Medrol. Needle was withdrawn intact. Skin was cleansed and Band-Aids was applied. DISPOSITION / PLANS: The patient tolerated the procedure well. No complication. The patient was placed in a supine position and transferred to the recovery area in a stable condition for observation. There was no evidence of lower extremity motor or sensory deficit after the procedure. Patient was discharged from the recovery room after meeting discharge criteria. Home discharge instructions were given to the patient by the staff. The patient was reexamined prior to discharge. The patient will schedule a follow up in the clinic in 2-4 weeks.
[2024-09-10 12:18] VITALS: BP 100/72; PULSE 93
--- NOTE | 2024-09-10 12:39 | FL ---
EXAMINATION TYPE: FL guided pain mgmt statistic DATE OF EXAM: 09/10/2024 11:58 AM COMPARISON: Pre Operative Images if available both CT/MRI or plain film CLINICAL INDICATION: Female, 44 years old with history of TRANSFORAMINIAL STER INJ; TECHNIQUE: FL guided pain mgmt statistic, multiple fluoroscopic images provided for procedure. DAP: 5.32 mGym2 Gycm2 uGym2 cGycm2 or equivalent. FINDINGS: Fluoroscopic images during injection for pain management demonstrate multilevel degeneration changes throughout the spine. No evidence for fracture. No acute process identified. IMPRESSION: 1. No evidence for intraoperative complication. 2. Please see the operative/procedural note for further details. [facility], , 09/10/2024 12:36 PM
== END 2024-09-10 12:28 | disposition home or self-care (01) ==
LOC: ORPAIN 10:02
PROVIDERS: ATTEND Pain Medicine Interventional Pain Medicine
DX: M51.369 Other intervertebral disc degeneration, lumbar region without mention of lumbar back pain or lower extremity pain (principal); M47.816 Spondylosis without myelopathy or radiculopathy, lumbar region; M48.061 Spinal stenosis, lumbar region without neurogenic claudication
CPT/HCPCS: 81025; 62323; Q9967; J1010

== ENCOUNTER → 2024-09-28 | Outpatient (CLI) | payer OTHER ==
[2024-09-28 09:12] VITALS: BP 115/80; PULSE 81; RESP 16; TEMP 97.8
--- NOTE | 2024-09-28 15:20 | P.PAINPG ---
PQRS Measure Charge Sheet Comment: A 44 yr old female w and son at side with severe and chronic LBP secondary to radiculopathy, spondylosis with facet arthropathy without myelopathy presents today for evaluation s/p PETROS L4-L5 and medication refills. Pt states she experienced 25 % pain relief x 2 wks s/p procedure. Pain level is provoked at 6 /10 in intensity, constant, predominantly axial, localized in the lumbar spine, burning in character w occasional shooting towards the buttocks and LEs. Pain is provoked by over activity. Pain is alleviated with a physician guided home stretching regimen daily since May 2024, heat, medications, topical, use of a LSO, use of a walker for ambulatory assistance, repositioning and rest. Oswestry axial pain score at 23. 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 Pt also stated she hasn't picked up carisoprodol for a year, then stated it was "late 2023" and refuse to acknowledge the pharmacy dispensed it to her in May 2024, per VHT. Even later, pt asked to have BL TFESI ordered because she stated "the doctor changed it." Interventional pain procedures completed include PETROS L4-L5 x1 (09/23) Patient is currently on [place], BioFreeze, Icy-Hot Patient denies any side effects of the medication(s), denies excessive drowsiness or sleepiness, denies suicidal ideation and reports that the current pain medication is helping to control the pain and improve activities of daily living. Patient denies any motor or sensory deficits. Patient denies any fever or night sweats, denies any change in the bowel movements or urination. Physical Examination: -Constitutional: Cooperative. Not in acute distress . - Neurologic: Cranial nerve II to XII intact. No focal neurological deficits. - Psychatric: Alert & oriented x 3. Matching mood & appropriate affect. Judgment and insight intact. - Musculoskeletal: Cervical spine: Muscle bulk/ tone/ strength in the bilateral upper extremities normal Vertebral body tenderness to palpation over Spurling test positive Distraction test positive Facet loading test positive TTP Thoracic spine Muscle bulk / tone/ strength in the bilateral paraspinal muscles normal Vertebral body tender to palpation over Facet loading test positive TTP Lumbar spine: Motor bulk/ tone/ strength lower extremities , thigh and legs : 5/5 Deep tendon reflexes : Normal Knee Jerk. Normal Ankle Jerk . Vertebral body tenderness to palpation over L5 A[place]ria Test positive BL L5-S1 Lumbar Facet Loading Test positive Straight Leg Raise: positive at 30 degrees right side/ left side Gaenslen's Test positive Sacral spine : Severe tenderness over the Sacroiliac joint: right side / left side Range of motion: Flexion of the lumbar spine <60 degrees Range of motion: Extension of the lumbar spine <20 degrees Gaenslen's Test positive right side / left side Eddie test: positive right side / left side Thigh Thrust Test positive right side / left side Sacral Thrust Test positive right side / left side Imaging: MRI non contrast of the lumbar spine: L3-4 L4-5 disc desiccation, L4-5 disc bulging with mild spinal stenosis at L4-5 Assessment and plan: Chronic LBP secondary to lumbar radiculopathy, spondylosis with facet arthropathy without myelopathy Recommendation of BL TFESI L5-S1 and medication management. Risks, benefits of procedure discussed and pt verbalized understanding. Pt recently on lorazepam and carisoprodol per MAPS, though pt states she last filled those medications in late 2023. Pt acknowledged understanding but also wants a referral to Dr Fletcher for a pain pump placement. Information provided. All questions answered. Chronic and current use of high-risk medication (Opioids). The patient was counseled about risk of opioid use, psychological risk associated with opioids and was orally counseled to not overuse , divert or sell medications. Pt is to store medication in a safe location. The patient is counseled against driving while using narcotic medications and also not to use alcohol or any illicit recreational drugs. Patient verbalized understanding that the lack of compliance will result in failure to renew narcotic prescription(s) as well as possible discharge from the clinic Diagnoses, prognosis and treatment options including but not limited to physical therapy, surgical interventions, interventional therapies and medication management including narcotics and adjuvant medication were discussed. All patient questions answered . Baclofen 10mg #90 Use, side effects, ad verse reactions, safe storage discussed. Opiate/ narcotic agreement signed 08/19/24 is discontinued and non-narcotic medications are recommended. MAPS reviewed and it was appropriate. I have spent less than 30 minutes on patient care today. Dr Devlin was available by phone for the evaluation of this patient. The time was used to review the medical records including relevant urine studies and Prescription history (MAPs), review of the available imaging, evaluation and examination of the patient, coordination of care with the medical staff and if applicable referring physicians, as well as creation of the medical record - Pain Location Bilateral Lower Back Non-Pharmacological Interventions: Chiropractic Treatment, Heat, Home Exercise, Massage, Physical Therapy Pharmacological Interventions: PRN Medication, Scheduled Medication PQRS Narrative: Hx Alcohol Use (MH) No Home Medications: Ambulatory Orders Aspirin [[place] Aspirin EC] 81 mg PO DAILY 07/31/24 Cholecalciferol [Vitamin D3 (125 Mcg = 5000 Iu)] 125 mcg PO DAILY 07/31/24 Cyanocobalamin [Vitamin B-12 Injection] 2,000 mcg SQ TH 07/31/24 Ergocalciferol [Vitamin D2 (1250 Mcg = 84278 Iu)] 1,250 mcg PO FR 07/31/24 Insulin Glargine-Yfgn [Semglee (Yfgn) Pen] 25 unit SQ BID 07/31/24 Insulin Lispro [Insulin Lispro Kwikpen U-100] 15 unit SQ TID-W/MEALS 07/31/24 Losartan [Cozaar] 50 mg PO DAILY 07/31/24 Metoprolol Tartrate [Lopressor] 25 mg PO BID 07/31/24 Nicotine 21Mg/24Hr Patch [Habitrol] 1 tab TRANSDERM DAILY 07/31/24 Tirzepatide [Mounjaro] 12.5 mg SQ FR 07/31/24 Topiramate 50 mg PO BID 07/31/24 medroxyPROGESTERone [Depo-Provera] 150 mg IM Q90D 07/31/24 Omeprazole 40 mg PO DAILY #0 08/04/24 Pregabalin [Lyrica] 150 mg PO BID 30 Days #120 cap 08/04/24 Butalb/APAP/Caff 50-325-40Mg [Fioricet 50-325-40] 1 each PO Q6HR PRN 30 Days #100 tab 08/19/24 Ondansetron [Zofran] 4 mg PO Q8HR PRN 30 Days #60 tab 08/19/24 Baclofen 10 mg PO TID 30 Days #90 tab 09/28/24 LORazepam [Ativan] 1 mg PO TID 09/28/24 Controlled Substance Measures - Controlled Substance Measures Is patient prescribed a controlled substance at discharge?: No
== END ==
LOC: PNWHC3 08:55
PROVIDERS: ATTEND Specialist
DX: M47.26 Other spondylosis with radiculopathy, lumbar region (principal); Z88.0 Allergy status to penicillin; Z88.2 Allergy status to sulfonamides; Z88.5 Allergy status to narcotic agent; Z88.8 Allergy status to other drugs, medicaments and biological substances
CPT/HCPCS: 99211

== ENCOUNTER 2024-10-22 13:13 | Day surgery (SDC) | payer OTHER ==
[2024-10-08 16:12] VITALS: BMI 36.1
[2024-10-22 13:37] VITALS: TEMP 97.8
[2024-10-22 13:45] LABS: Glucose,Whole Blood 140 mg/dL (70-110)
[2024-10-22] MEDS ORDERED: IOPAMIDOL M200 10 ML VIAL ONE (15:09)
[2024-10-22] MEDS ORDERED: methylPREDNISolone ACETATE 40 MG/ML 1 ML VIAL ONE (15:09)
--- NOTE | 2024-10-22 15:20 | P.PCN ---
Date of Procedure: 10/22/24 Procedure(s) Performed: PREOPERATIVE DIAGNOSIS: 1-Lumbar radiculopathy . POSTOPERATIVE DIAGNOSIS: 1-lumbar radiculopathy. PROCEDURE 1. Transforaminal epidural steroid injection under fluoroscopic guidance at bilateral L5-S1 level. (Fluoroscopy images stored on file in the radiology Department ) 2. Lumbar epidurogram . ANESTHESIA: Local with 1% lidocaine 3 ml. EBL: Minimal PROCEDURE INDICATION: The patient with low back pain and radiculopathy symptoms unresponsive to conservative treatment. PROCEDURE DESCRIPTION / TECHNIQUE: The patient was seen and identified in the preoperative area. Risks, benefits, complications, and alternatives were discussed with the patient. The patient agreed to proceed with the procedure and signed the consent, and vital signs were stable. Patient was taken to the OR and time out was completed. The patient was placed in the prone position on procedure table and a pillow was placed under the abdomen to reduce lumbar lordosis. The lumbosacral area was prepped and draped in the usual sterile fashion. Critical pause was taken. Vital signs were closely monitored during the procedure. Using oblique fluoroscopy, the chin of the ``Oskar dog at Right L5-S1 level was identified, and the skin and deeper tissues just below was localized with 1% lidocaine. Subsequently, a 22-gauge 5-inch spinal needle was advanced under a tunneled view fluoroscopic guidance just underneath the chin of the ``Oskar dog at the right L5-S1 Under lateral fluoroscopy, the needle was then advanced to the posterior border of the interforaminal space. After negative aspiration of CSF and blood and with no paresthesias, 1 mL Isovue 200 contrast dye was injected excellent epidurogram and outlining of the nerve root Subsequently, 3 mL of block solution containing 20 mg Depo-Medrol and 2 mL of 0.9% normal saline PF was injected. Needle was removed and the same procedure was repeated at the left L5-S1 level . At the end of the procedure, skin was cleansed, and bandages were applied. COMPLICATIONS:none DISPOSITION / PLANS: The patient was placed in a supine position and transferred to the recovery area in a stable condition for observation. There was no evidence of lower extremity motor or sensory deficit after the procedure. Patient was discharged from the recovery room after meeting discharge criteria. Home discharge instructions were given to the patient by the staff. The patient was reexamined prior to discharge.
[2024-10-22 15:27] VITALS: RESP 16
[2024-10-22 15:39] VITALS: BP 124/86; PULSE 102
--- NOTE | 2024-10-22 22:04 | FL ---
Fluoroscopy INDICATION: Pain FINDINGS: Fluoroscopy time: 6.0 seconds. Total dose area product (DAP) in uGy*m?, mGy*cm? (or similar): 0.97576 Images obtained: 3. Images document destructive towards the lumbar spine IMPRESSION: 1. Documentation of fluoroscopy. [facility], , 10/22/2024 10:02 PM
== END 2024-10-22 15:54 | disposition home or self-care (01) ==
LOC: ORPAIN 13:13
PROVIDERS: ATTEND Specialist
DX: M54.16 Radiculopathy, lumbar region (principal)
CPT/HCPCS: 81025

== ENCOUNTER 2024-10-23 00:19 | Observation (INO) | payer OTHER ==
[2024-10-23 00:55] VITALS: TEMP 98.4
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
[2024-10-23 01:28] LABS: Basophils # (A) 0.05 10*3/uL (0.00-0.10); Basophils % (A) 0.4 %; Eosinophils # (A) 0.09 10*3/uL (0.04-0.35); Eosinophils % (A) 0.8 %; HCT 37.3 % (37.2-46.3); HGB 12.4 g/dL (12.0-15.0); Lymphocytes # (A) 1.76 10*3/uL (0.90-5.00); Lymphocytes % (A) 15.0 %; MCH 30.1 pg (27.0-32.0); MCHC 33.2 g/dL (32.0-37.0); MCV 90.5 fL (80.0-97.0); Monocytes # (A) 0.33 10*3/uL (0.20-1.00); Monocytes % (A) 2.8 %; Neutrophils # (A) 9.43 10*3/uL (1.80-7.70); Neutrophils % (A) 80.7 %; Platelet Count 357 10*3/uL (140-440); RBC 4.12 10*6/uL (4.10-5.20); RDW 13.7 % (11.5-14.5); WBC 11.70 10*3/uL (4.50-10.00)
[2024-10-23] MEDS: ONDANSETRON 4 MG/2 ML VIAL IVP STA ×2 (01:33→03:30)
[2024-10-23] MEDS: LORazepam 1 MG/0.5 ML VIAL IV STA (01:35)
[2024-10-23 01:39] LABS: INR 0.9 (<1.2); Partial Thromboplastin Time 24.1 sec (22.0-30.0); Prothrombin Time 10.5 sec (10.0-12.5)
[2024-10-23] MEDS: MORPHINE SULFATE 4 MG/ML SYRINGE IV STA (01:39)
[2024-10-23] MEDS: SODIUM CHLORIDE 0.9% 1,000 ML IV STA (01:39)
[2024-10-23 01:42] LABS: ALT 13 U/L (4-34); AST 17 U/L (14-36); African American GFR (CKD) >90 (>60 ml/min/1.73 sqM); Albumin 4.2 g/dL (3.5-5.0); Alkaline Phosphatase 79 U/L (38-126); Anion Gap 12 mmol/L; Blood Urea Nitrogen 6 mg/dL (7-17); Calcium 10.3 mg/dL (8.4-10.2); Carbon Dioxide 17 mmol/L (22-30); Chloride 111 mmol/L (98-107); Glucose 162 mg/dL (74-99); Non-African American GFR(CKD) >90 (>60 ml/min/1.73 sqM); Potassium 4.3 mmol/L (3.5-5.1); Sodium 140 mmol/L (137-145); Total Protein 6.6 g/dL (6.3-8.2)
[2024-10-23] MEDS: HYDROmorphone 1 MG/ML 1 ML SYRINGE IVP STA ×2 (02:39→05:14)
--- NOTE | 2024-10-23 05:09 | CT ---
EXAM: CT Lumbar Spine With Intravenous Contrast CLINICAL HISTORY: ITS.REASON CT Reason: LLE paresthesias, s/p lumbar spine injections TECHNIQUE: Axial computed tomography images of the lumbar spine with intravenous contrast. CTDI is 37.2 mGy and DLP is 1442.6 mGy-cm. This CT exam was performed using one or more of the following dose reduction techniques: automated exposure control, adjustment of the mA and/or kV according to patient size, and/or use of iterative reconstruction technique. COMPARISON: MRI dated 07/31/2024. FINDINGS: Vertebrae: Mild diffuse degenerative endplate hypertrophy. No acute fracture. Discs/spinal canal/neural foramina: No acute findings. No spinal canal stenosis. Soft tissues: Air is seen within the soft tissues of the lower left paraspinal muscle. No evidence of abscess. Pleural space: Small right-sided pleural effusion. Liver: Hepatomegaly and mild intraventricular dilatation. Gallbladder and bile ducts: The gallbladder is surgically absent. IMPRESSION: 1. No acute lumbar spine findings. 2. Likely postprocedural air is seen within paraspinal muscles of the left lower back.
[2024-10-23] MEDS: METOCLOPRAMIDE 5 MG/ML 2 ML VIAL IVP STA (05:10)
[2024-10-23] MEDS ORDERED: SODIUM CHLORIDE 0.9% 1,000 ML IV SCH (05:15)
[2024-10-23] MEDS ORDERED: NALOXONE 0.4 MG/ML 1 ML VIAL IV PRN (05:15)
[2024-10-23 05:24] VITALS: BP 127/80; PULSE 101; RESP 18
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
--- NOTE | 2024-10-24 07:06 | P.DS ---
Providers Date of admission: 10/23/24 05:17 Expected date of discharge: 10/23/24 Attending physician: Mirna Blackmon Consults: 10/23/24 05:15 Consult Physician Routine Consulting Provider: Derek Black Consult Reason/Comments: LLE weakness Do you want consulting provider notified?: Yes Primary care physician: Santino Gomez [facility] Course: This is a 45-year-old female who was admitted with lower extremity weakness and inability to walk for neurology evaluation. Apparently according to nursing documentation, patient decided to leave AGAINST MEDICAL ADVICE with . Risk versus benefits were explained and AMA paperwork signed. Patient was not evaluated by admitting physician and was only seen by ER physician along with nursing staff. Please refer to their documentation for further HPI. The impression and plan of care has been dictated by Tania Peña, Nurse Practitioner as directed. Dr. Neymar MD I have performed a history and examination and MDM of this patient, discussed the same with the dictator, and agree with the dictator's assessment and plan as written ,documented as a scribe. Based on total visit time, I have performed more than 50% of the visit. Patient Condition at Discharge: Undetermined Plan - Discharge Summary New Discharge Prescriptions: No Action Ergocalciferol [Vitamin D2 (1250 Mcg = 77230 Iu)] 1,250 mcg PO FR Aspirin [[place] Aspirin EC] 81 mg PO DAILY Metoprolol Tartrate [Lopressor] 25 mg PO BID medroxyPROGESTERone [Depo-Provera] 150 mg IM Q90D Insulin Lispro [Insulin Lispro Kwikpen U-100] 15 unit SQ TID-W/MEALS Pregabalin [Lyrica] 150 mg PO BID 30 Days #120 cap Omeprazole 40 mg PO DAILY #0 Ondansetron [Zofran] 4 mg PO Q8HR PRN 30 Days #60 tab PRN Reason: Nausea LORazepam [Ativan] 1 mg PO BID Baclofen 10 mg PO TID 30 Days #90 tab Butalb/APAP/Caff 50-325-40Mg [Fioricet 50-325-40] 1 tab PO Q6HR PRN PRN Reason: Headache Insulin Glargine-Yfgn [Semglee (Yfgn) Pen] 25 unit SQ BID Losartan [Cozaar] 25 mg PO DAILY Tirzepatide [Mounjaro] 15 mg SQ TH DULoxetine HCL [Cymbalta] 30 mg PO HS Topiramate 50 mg PO BID Cyanocobalamin [Vitamin B-12 Injection] 2,000 mcg SQ FR Cholecalciferol [Vitamin D3 (125 Mcg = 5000 Iu)] 125 mcg PO DAILY Nicotine 21Mg/24Hr Patch [Habitrol] 1 patch TRANSDERM DAILY Discharge Medication List Aspirin [[place] Aspirin EC] 81 mg PO DAILY 07/31/24 [History] Cholecalciferol [Vitamin D3 (125 Mcg = 5000 Iu)] 125 mcg PO DAILY 07/31/24 [History] Cyanocobalamin [Vitamin B-12 Injection] 2,000 mcg SQ FR 07/31/24 [History] Ergocalciferol [Vitamin D2 (1250 Mcg = 32235 Iu)] 1,250 mcg PO FR 07/31/24 [History] Insulin Lispro [Insulin Lispro Kwikpen U-100] 15 unit SQ TID-W/MEALS 07/31/24 [History] Metoprolol Tartrate [Lopressor] 25 mg PO BID 07/31/24 [History] Nicotine 21Mg/24Hr Patch [Habitrol] 1 patch TRANSDERM DAILY 07/31/24 [History] Topiramate 50 mg PO BID 07/31/24 [History] medroxyPROGESTERone [Depo-Provera] 150 mg IM Q90D 07/31/24 [History] Omeprazole 40 mg PO DAILY #0 08/04/24 [Rx] Pregabalin [Lyrica] 150 mg PO BID 30 Days #120 cap 08/04/24 [Rx] Ondansetron [Zofran] 4 mg PO Q8HR PRN 30 Days #60 tab 08/19/24 [Rx] Baclofen 10 mg PO TID 30 Days #90 tab 09/28/24 [Rx] LORazepam [Ativan] 1 mg PO BID 09/28/24 [History] Butalb/APAP/Caff 50-325-40Mg [Fioricet 50-325-40] 1 tab PO Q6HR PRN 10/23/24 [History] DULoxetine HCL [Cymbalta] 30 mg PO HS 10/23/24 [History] Insulin Glargine-Yfgn [Semglee (Yfgn) Pen] 25 unit SQ BID 10/23/24 [History] Losartan [Cozaar] 25 mg PO DAILY 10/23/24 [History] Tirzepatide [Mounjaro] 15 mg SQ TH 10/23/24 [History] Follow up Appointment(s)/Referral(s[facility] Discharge Disposition: LEFT AGAINST MEDICAL ADVICE
== END 2024-10-23 09:35 | disposition left against medical advice (07) ==
LOC: EC 00:19 → 4SSUR 05:17 → 5NMEDONC 06:55
PROVIDERS: ADMIT Hospitalist; ATTEND Hospitalist
DX: R53.1 Weakness (principal); M79.605 Pain in left leg; R32 Unspecified urinary incontinence; R20.2 Paresthesia of skin; G35 Multiple sclerosis; F17.200 Nicotine dependence, unspecified, uncomplicated; Z79.82 Long term (current) use of aspirin; Z79.4 Long term (current) use of insulin; Z79.85 Long-term (current) use of injectable non-insulin antidiabetic drugs; Z79.3 Long term (current) use of hormonal contraceptives; Z79.899 Other long term (current) drug therapy; Z53.29 Procedure and treatment not carried out because of patient's decision for other reasons
CPT/HCPCS: 96376; 96374; 96375; 99285; 36415; 93005; 80053; 85025; 85610; 85730; 72132; G0378 ×2; J2060; J2270; J2765; J2405; J1171; Q9967